=== PATIENT | female | born 1940 ===

== ENCOUNTER 2017-02-04 12:55 | Inpatient (IN) | payer MEDICARE, MEDICAID ==
--- NOTE | 2017-02-04 16:22 | CP.PCM.HP ---
<SriniRico Frankie - Last Filed: 02/04/17 17:20> History of Present Illness - History of Present Illness History of Present Illness: CC: "malfunctioned G tube" Patient is a 75 year old non-verbal female with PMHx of HTN, Parkinson's, Severe dementia, Hypothyroidism, failure to thrive, and DM II who presents to the ED by EMS from [facility] for malfunctioning gastric tube. At baseline, patient is bed-bound, non-verbal. History and HPI collected from chart. Per transfer form, the G Tube was attempted to be replaced by wound surgeon at group home under local anesthesia, after applying gentle constant pressure the tube was unable to be removed. Per old records, her appetite began declining in 06/2015 and she had her initial G Tube insertion placed by Dr. Soriano at that time with subsequent replacements. Patient has contracted upper extremities and with foot drop, unable to advocate for self. Per palliative consult note from 11/2015, patient is DNI only. PMD: Dr Rascon PMHx: HTN, Parkinson's, Severe dementia, Hypothyroidism, failure to thrive, and DM II Surgical Hx: none Allergies: no known drug allergies Fam Hx: non-contributory Social Hx: group home resident for 5 years Present on Admission - Present on Admission Any Indicators Present on Admission: No Review of Systems - Review of Systems Systems not reviewed;Unavailable: Dementia Past Patient History - Past Social History Smoking Status: Never Smoked - CARDIAC Hx Cardiac Disorders: Yes Hx Hypercholesterolemia: Yes Hx Hypertension: Yes - PULMONARY Hx Respiratory Disorders: Yes Hx Pneumonia: Yes - NEUROLOGICAL Hx Neurological Disorder: Yes Hx Dementia: Yes Hx Parkinson's Disease: Yes - HEENT Hx HEENT Problems: Yes Other/Comment: unable to speak - RENAL Hx Chronic Kidney Disease: No - ENDOCRINE/METABOLIC Hx Diabetes Mellitus Type 2: Yes - INTEGUMENTARY Hx Dermatological Problems: Yes Other/Comment: rash to upper back , front neck area with small open sore 1cmx 0.5cm - MUSCULOSKELETAL/RHEUMATOLOGICAL Hx Musculoskeletal Disorders: Yes Hx Falls: Yes - GASTROINTESTINAL Hx Gastrointestinal Disorders: Yes Other/Comment: Pt has PEG with tube feeding - GENITOURINARY/GYNECOLOGICAL Hx Incontinence: Yes Other/Comment: with ulloa cath - PSYCHIATRIC Hx Psychophysiologic Disorder: No Hx Substance Use: No - SURGICAL HISTORY Hx Surgeries: No ( PER [facility] CHART) Hx Section: Yes Other/Comment: Peg tube present - ANESTHESIA Hx Anesthesia: Yes Hx Anesthesia Reactions: No Hx Malignant Hyperthermia: No Meds Allergies/Adverse Reactions: Allergies Allergy/AdvReac Type Severity Reaction Status Date / Time No Known Allergies Allergy Verified 02/04/17 14:12 Physical Exam - Additional Findings Additional findings: - Constitutional Appears: Cachectic, Chronically Ill, Other (contracted) - Head Exam Head Exam: ATRAUMATIC, NORMOCEPHALIC - Eye Exam Eye Exam: No conjuctival injection Additional comments: eyelids contracted, difficult to open - ENT Exam ENT Exam: Mucous Membranes Dry - Neck Exam Neck Exam: Normal Inspection - Respiratory Exam Respiratory Exam: Clear to Ausculation Bilateral, NORMAL BREATHING PATTERN. absent: Rales, Rhonchi, Wheezes, Respiratory Distress - Cardiovascular Exam Cardiovascular Exam: REGULAR RHYTHM, +S1, +S2. absent: Irregular Rhythm - GI/Abdominal Exam GI & Abdominal Exam: Soft, Normal Bowel Sounds. absent: Distended PEG tube inserted in place, dry blood surrounding G tube - Extremities Exam Extremities Exam: absent: Pedal Edema Additional comments: + contractions upper extremities - Neurological Exam Neurological Exam: absent: Alert, Awake - Psychiatric Exam Psychiatric exam: Flat Affect - Skin Skin Exam: Dry, Intact, Normal Color, Warm no ulcers noted Results - Vital Signs Recent Vital Signs: Last Vital Signs Temp 98.7 F 02/04/17 13:29 Pulse 73 02/04/17 16:14 Resp 18 02/04/17 16:14 BP 132/65 02/04/17 16:14 Pulse Ox 96 02/04/17 16:14 - Labs Result Diagrams: 02/04/17 16:30 02/04/17 16:30 Assessment & Plan (1) Malfunction of gastrostomy tube Assessment and Plan: GI consulted, Dr Stephens Given stable vitals, patient's home medications, which are administered via G tube, will be held at this time until G tube is replaced. NS 75 cc/hr Status: Acute (2) Parkinsons Assessment and Plan: Hold until G tube replaced: Carbidopa/Levidopa 25 mg po BID Status: Chronic (3) Dementia Assessment and Plan: Hold until G tube replaced: Aricept 5 mg po daily Status: Chronic (4) Diabetes mellitus Assessment and Plan: Hold until G tube replaced: Metformin 500 mg po daily Hold until G tube replaced: Diabetisource tube feeds @20ml/hr with goal rate of 40ml/hr. Accuchecks ACHS RISS Status: Chronic (5) HTN (hypertension) Assessment and Plan: Stable Hold until G tube replaced: Ramipril 5 mg po daily Hold for SBP <100 and HR <60 Status: Chronic (6) Hypothyroidism Assessment and Plan: Hold until G tube replaced: Synthroid 88 mcg po qam Status: Chronic (7) Prophylactic measure Assessment and Plan: Heparin 5000u SC q8h SCD's Pepcid 20mg IV daily Status: Acute <Mccarthy,Peter H - Last Filed: 02/05/17 07:33> Results - Vital Signs Recent Vital Signs: Last Vital Signs Temp 98.9 F 02/04/17 23:47 Pulse 75 02/04/17 23:47 Resp 20 02/04/17 23:47 BP 135/61 02/04/17 23:47 Pulse Ox 98 02/04/17 23:47 - Labs Result Diagrams: 02/04/17 16:30 02/04/17 16:30 Labs: Laboratory Results - last 24 hr 02/04/17 02/04/17 02/04/17 16:30 16:30 16:30 WBC 8.9 RBC 4.32 Hgb 14.5 Hct 43.5 MCV 100.8 H MCH 33.6 H MCHC 33.4 RDW 13.9 Plt Count 159 MPV 10.7 Neut % (Auto) 65.0 Lymph % (Auto) 26.4 [place] % (Auto) 7.2 Eos % (Auto) 0.8 Baso % (Auto) 0.6 Neut # 5.8 Lymph # 2.4 [place] # 0.6 Eos # 0.1 Baso # 0.1 PT 11.4 INR 1.0 APTT 35 H Sodium 136 Potassium 3.8 Chloride 104 Carbon Dioxide 25 Anion Gap 10 BUN 20 H Creatinine 0.5 L Est GFR ( Amer) > 60 Est GFR (Non-Af Amer) > 60 POC Glucose (mg/dL) Random Glucose 91 Calcium 8.7 Total Bilirubin 0.3 AST 18 ALT 39 Alkaline Phosphatase 75 Troponin I < 0.0120 Total Protein 7.4 Albumin 3.6 Globulin 3.8 Albumin/Globulin Ratio 1.0 02/04/17 02/05/17 02/05/17 16:43 02:26 07:13 WBC RBC Hgb Hct MCV MCH MCHC RDW Plt Count MPV Neut % (Auto) Lymph % (Auto) [place] % (Auto) Eos % (Auto) Baso % (Auto) Neut # Lymph # [place] # Eos # Baso # PT INR APTT Sodium Potassium Chloride Carbon Dioxide Anion Gap BUN Creatinine Est GFR ( Amer) Est GFR (Non-Af Amer) POC Glucose (mg/dL) 101 114 H 109 Random Glucose Calcium Total Bilirubin AST ALT Alkaline Phosphatase Troponin I Total Protein Albumin Globulin Albumin/Globulin Ratio Attending/Attestation - Attestation I have personally seen and examined this patient.: Yes I have fully participated in the care of the patient.: Yes I have reviewed all pertinent clinical information: Yes Notes (Text): 02/05/17 07:32 Medical attending: Patient was seen and examined by me, agrees the above note by medical scientist. We saw the patient in ER bed #2 this is a patient who has a history of very severe Parkinson's disease, dementia, history of diabetes who appear to have had what appears to be a gastrostomy tube placed in 2015. The patient has been at a group home for a rather extended period of time now. From what I understand at the group home they try to change the G-tube however this proved to be unsuccessful and she was brought into the emergency room. In the ER the ER physician also attempted to address the G-tube is well however this again was not successful. When we saw her she didn't have any abnormal vital signs. As documented above in the resident note or not able to get a complete review of systems she is nonverbal and not communicating. She does have IV line for now will give her intravenous fluids until we came to let GI evaluate the patient and see what they could do with the tube Thank you very much, Kaden Mccarthy
[2017-02-04 16:33] LABS: BASO # 0.1 K/uL (0.0-0.2); BASO % 0.6 % (0.0-2.0); EOS # 0.1 K/uL (0.0-0.7); EOS % 0.8 % (0.0-4.0); HEMATOCRIT 43.5 % (34.0-47.0); LYMPH # 2.4 K/uL (1.0-4.3); LYMPH % 26.4 % (20.0-40.0); MEAN CELL VOLUME 100.8 fL (81.0-99.0); MEAN CORPUSCULAR HEMOGLOBIN 33.6 pg (27.0-31.0); MEAN CORPUSCULAR HGB CONC 33.4 g/dL (33.0-37.0); MEAN PLATELET VOLUME 10.7 fL (7.2-11.7); MONO # 0.6 K/uL (0.0-0.8); MONO % 7.2 % (0.0-10.0); RED CELL DISTRIBUTION WIDTH 13.9 % (11.5-14.5); WHITE BLOOD COUNT 8.9 K/uL (4.8-10.8)
--- NOTE | 2017-02-04 16:33 | RAD ---
PROCEDURE: CHEST RADIOGRAPH, 1 VIEW HISTORY: SOB COMPARISON: 12/09/2015 FINDINGS: LUNGS: Clear. PLEURA: No pneumothorax or pleural fluid seen. CARDIOVASCULAR: Normal. OSSEOUS STRUCTURES: No significant abnormalities. VISUALIZED UPPER ABDOMEN: Normal. OTHER FINDINGS: None. IMPRESSION: No active disease.
[2017-02-04 16:45] LABS: ALKALINE PHOSPHATASE 75 U/L (38-126); ALT/SGPT 39 U/L (9-52); BILIRUBIN,TOTAL 0.3 mg/dL (0.2-1.3); BLOOD UREA NITROGEN 20 mg/dL (7-17); CALCIUM 8.7 mg/dl (8.6-10.4); CARBON DIOXIDE 25 mmol/L (22-30); CHLORIDE 104 mmol/L (98-107); GFR AFRICAN-AMERICAN > 60; GLUCOSE,RANDOM 91 mg/dL (65-105); POTASSIUM 3.8 mmol/L (3.6-5.2); SODIUM 136 mmol/L (132-148); TOTAL PROTEIN 7.4 g/dL (6.3-8.3)
[2017-02-04] MEDS: (Novolin R) Insulin Human Regular 100 units/ml vial SC SCH (16:48)
--- NOTE | 2017-02-04 16:50 | C.PDOC ---
History Of Present Illness 76 yr old female with PMHx of advanced dementia, brought in via EMS from a [facility] group home, presents to the ER for malfunctioning G tube. According to group home staff, tube was placed by a unknown GI here at [facility]. [facility] also attempted to swap the tube out with no success. ROS is unable to be obtained due to clinical condition. Time Seen by Provider: 02/04/17 13:57 Chief Complaint (Nursing): GI Problem History Per: EMS History/Exam Limitations: clinical condition Past Medical History Reviewed: Historical Data, Nursing Documentation, Vital Signs Vital Signs: Last Vital Signs Temp 98.3 F 02/05/17 16:56 Pulse 80 02/05/17 16:56 Resp 20 02/05/17 16:56 BP 138/79 02/05/17 16:56 Pulse Ox 95 02/05/17 16:56 - Medical History PMH: Dementia, HTN, Hypercholesterolemia, Parkinson's Disease, Pneumonia - [facility] Procedures INSERTION OF FEEDING DEVICE INTO STOMACH, PERC APPROACH (06/27/15) INSPECTION OF UPPER INTESTINAL TRACT, ENDO (06/27/15) INTRODUCTION OF NUTRITIONAL INTO PERIPH VEIN, PERC APPROACH (06/27/15) INTRODUCTION OF NUTRITIONAL INTO UP GI, VIA OPENING (12/03/15) Family History: States: No Known Family Hx - Social History Hx Alcohol Use: No (non verbal) Hx Substance Use: No - Immunization History Hx Tetanus Toxoid Vaccination: No Hx Influenza Vaccination: No Hx Pneumococcal Vaccination: No Review Of Systems Review Of Systems: ROS cannot be obtained secondary to pt's inabilty to answer questions. Physical Exam - Physical Exam Appears: Non-toxic, No Acute Distress, Other ((+) Advanced dementia. Non responsive.) Skin: Warm, Dry, No Rash Head: Atraumatic, Normacephalic Respiratory: Normal Breath Sounds, No Rales, No Rhonchi, No Stridor, No Wheezing Gastrointestinal/Abdominal: Soft, Other ((+) G tube in left upper abdomen, clogged with material. Dry blood around the G tube area.) Extremity: Other ((+) Contracted upper and lower extremities. ) Neurological/Psych: Other (Unresponsive. Contracted. Consistent with advanced Dementia.) ED Course And Treatment - Laboratory Results Result Diagrams: 02/04/17 16:30 02/04/17 16:30 O2 Sat by Pulse Oximetry: 96 (RA) Pulse Ox Interpretation: Normal - Radiology CXR: Viewed By Me, Read By Radiologist CXR Interpretation: Yes: No Acute Disease Medical Decision Making Medical Decision Making: PLAN: * CXR * EKG * Troponin * CBC * CMP * Urinalysis Disposition Doctor Will See Patient In The: Hospital Counseled Patient/Family Regarding: Studies Performed, Diagnosis - Disposition Disposition: HOSPITALIZED Disposition Time: 18:00 Condition: GOOD - Clinical Impression Clinical Impression: PEG (percutaneous endoscopic gastrostomy) adjustment/replacement/removal - Scribe Statement The provider has reviewed the documentation as recorded by the Jose Saavedra Provider Attestation: All medical record entries made by the Jose were at my direction and personally dictated by me. I have reviewed the chart and agree that the record accurately reflects my personal performance of the history, physical exam, medical decision making, and the department course for this patient. I have also personally directed, reviewed, and agree with the discharge instructions and disposition.
[2017-02-04 17:00] LABS: AST/SGOT 18 U/L (14-36)
[2017-02-04] MEDS ORDERED: Sodium Chloride 0.9% 1,000 ML ONE (17:20)
[2017-02-04] MEDS: Sodium Chloride 0.9% 1,000 ML IV SCH (17:24)
[2017-02-04] MEDS ORDERED: Carbidopa/Levodopa 25/250 GT SCH (18:00)
[2017-02-05] MEDS ORDERED: Levothyroxine 88 MCG TAB PO SCH (06:30)
[2017-02-05] MEDS: Sodium Chloride 0.9% 1,000 ML IV SCH (06:40)
[2017-02-05] MEDS: (Novolin R) Insulin Human Regular 100 units/ml vial SC SCH ×4 (08:15→21:55)
--- NOTE | 2017-02-05 08:47 | CP.PCM.CON ---
<Pratibha Oglesby - Last Filed: 02/05/17 09:32> History of Present Illness - History of Present Illness History of Present Illness: Gastroenterology Fellow/PGY5 Consult Note 76 year old female with history of Hypertension, Hypothyroidism, Diabetes, advanced Parkinson's dementia, and dysphagia s/p PEG placement 06/2015 presenting with malfunctioning gastric tube. Patient is nonverbal. History obtained from chart review of nursing facility notes and hospital staff. Feeding tube unable to be exchanged at nursing facility. Nursing staff noted tube has not been flushing well for administration of feedings and medications. Family- unknown Social- chart review- no tobacco, alcohol, illicit drug use Surgery- PEG placement 06/2015 Review of Systems - Review of Systems Review of Systems: 12-point review of systems unable to be obtained due to advanced dementia Past Patient History - Past Social History Smoking Status: Never Smoked - CARDIAC Hx Cardiac Disorders: Yes Hx Hypercholesterolemia: Yes Hx Hypertension: Yes - PULMONARY Hx Respiratory Disorders: Yes Hx Pneumonia: Yes - NEUROLOGICAL Hx Neurological Disorder: Yes Hx Dementia: Yes Hx Parkinson's Disease: Yes - HEENT Hx HEENT Problems: Yes Other/Comment: unable to speak - RENAL Hx Chronic Kidney Disease: No - ENDOCRINE/METABOLIC Hx Endocrine Disorders: Yes Hx Diabetes Mellitus Type 2: Yes - HEMATOLOGICAL/ONCOLOGICAL Hx Blood Disorders: No - INTEGUMENTARY Hx Dermatological Problems: Yes Other/Comment: rash to upper back , front neck area with small open sore 1cmx 0.5cm - MUSCULOSKELETAL/RHEUMATOLOGICAL Hx Musculoskeletal Disorders: Yes Hx Falls: Yes - GASTROINTESTINAL Hx Gastrointestinal Disorders: Yes Other/Comment: Pt has PEG with tube feeding - GENITOURINARY/GYNECOLOGICAL Hx Genitourinary Disorders: Yes Hx Incontinence: Yes Other/Comment: with ulloa cath - PSYCHIATRIC Hx Psychophysiologic Disorder: No Hx Substance Use: No - SURGICAL HISTORY Hx Surgeries: Yes ( PER [facility] CHART) Hx Section: Yes Other/Comment: Peg tube present - ANESTHESIA Hx Anesthesia: Yes Hx Anesthesia Reactions: No Hx Malignant Hyperthermia: No Meds Allergies/Adverse Reactions: Allergies Allergy/AdvReac Type Severity Reaction Status Date / Time No Known Allergies Allergy Verified 02/04/17 14:12 - Medications Medications: Current Medications Famotidine (Pepcid) 20 mg IVP DAILY [facility] Heparin Sodium (Porcine) (Heparin) 5,000 units SC Q8 [facility] Last Admin: 02/05/17 06:40 Dose: 5,000 units Sodium Chloride (Sodium Chloride 0.9%) 1,000 mls @ 75 mls/hr IV .[id number] DANIS Last Admin: 02/05/17 06:40 Dose: 75 mls/hr Insulin Human Regular (Novolin R) 0 unit SC ACHS DANIS PRN Reason: Protocol Last Admin: 02/05/17 08:15 Dose: Not Given Physical Exam - Constitutional Appears: Non-toxic, No Acute Distress - Head Exam Head Exam: ATRAUMATIC, NORMOCEPHALIC - Eye Exam Eye Exam: PERRL Pupil Exam: PERRL. absent: Miosis, Mydriatic - ENT Exam ENT Exam: Mucous Membranes Moist, Normal Oropharynx - Neck Exam Neck exam: Positive for: Normal Inspection - Respiratory Exam Respiratory Exam: Clear to Auscultation Bilateral. absent: Rales, Rhonchi, Wheezes - Cardiovascular Exam Cardiovascular Exam: RRR, +S1, +S2. absent: Gallop, Rubs - GI/Abdominal Exam GI & Abdominal Exam: Normal Bowel Sounds, Soft. absent: Distended, Firm, Guarding, Organomegaly, Rebound, Rigid, Tenderness Additional comments: LUQ PEG site C/D/I, tubing with old debris on wall - Extremities Exam Extremities exam: Positive for: normal inspection, pedal edema - Neurological Exam Additional comments: nonverbal, eyes remain closed to verbal stimuli - Psychiatric Exam Additional comments: unable to assess in setting of advanced Dementia - Skin Skin Exam: Dry, Intact, Normal Color, Warm Results - Vital Signs Recent Vital Signs: Last Vital Signs Temp 97.6 F 02/05/17 08:40 Pulse 83 02/05/17 08:40 Resp 21 02/05/17 08:40 BP 113/70 02/05/17 08:40 Pulse Ox 98 02/05/17 08:40 - Labs Result Diagrams: 02/04/17 16:30 02/04/17 16:30 Labs: Laboratory Results - last 24 hr 02/04/17 02/04/17 02/04/17 16:30 16:30 16:30 WBC 8.9 RBC 4.32 Hgb 14.5 Hct 43.5 MCV 100.8 H MCH 33.6 H MCHC 33.4 RDW 13.9 Plt Count 159 MPV 10.7 Neut % (Auto) 65.0 Lymph % (Auto) 26.4 [place] % (Auto) 7.2 Eos % (Auto) 0.8 Baso % (Auto) 0.6 Neut # 5.8 Lymph # 2.4 [place] # 0.6 Eos # 0.1 Baso # 0.1 PT 11.4 INR 1.0 APTT 35 H Sodium 136 Potassium 3.8 Chloride 104 Carbon Dioxide 25 Anion Gap 10 BUN 20 H Creatinine 0.5 L Est GFR ( Amer) > 60 Est GFR (Non-Af Amer) > 60 POC Glucose (mg/dL) Random Glucose 91 Calcium 8.7 Total Bilirubin 0.3 AST 18 ALT 39 Alkaline Phosphatase 75 Troponin I < 0.0120 Total Protein 7.4 Albumin 3.6 Globulin 3.8 Albumin/Globulin Ratio 1.0 02/04/17 02/05/17 02/05/17 16:43 02:26 07:13 WBC RBC Hgb Hct MCV MCH MCHC RDW Plt Count MPV Neut % (Auto) Lymph % (Auto) [place] % (Auto) Eos % (Auto) Baso % (Auto) Neut # Lymph # [place] # Eos # Baso # PT INR APTT Sodium Potassium Chloride Carbon Dioxide Anion Gap BUN Creatinine Est GFR ( Amer) Est GFR (Non-Af Amer) POC Glucose (mg/dL) 101 114 H 109 Random Glucose Calcium Total Bilirubin AST ALT Alkaline Phosphatase Troponin I Total Protein Albumin Globulin Albumin/Globulin Ratio Assessment & Plan - Assessment and Plan (Free Text) Assessment: 76 year old female with history of Hypertension, Hypothyroidism, Diabetes, advanced Parkinson's dementia, and dysphagia s/p PEG placement 06/2015 presenting with malfunctioning gastric tube. Active treatment of PEG malfunction to feeds and medication administration. Plan: >POD0 (02/05/17) bedside PEG exchange >okay to use for feeds and medication administration >medicine team managing chronic comorbidities >thank you for opportunity to participate in the care of this patient >please contact with questions or concerns <Prem Baird - Last Filed: 02/05/17 09:55> Meds - Medications Medications: Current Medications Famotidine (Pepcid) 20 mg IVP DAILY [facility] Last Admin: 02/05/17 09:48 Dose: 20 mg Heparin Sodium (Porcine) (Heparin) 5,000 units SC Q8 [facility] Last Admin: 02/05/17 06:40 Dose: 5,000 units Sodium Chloride (Sodium Chloride 0.9%) 1,000 mls @ 75 mls/hr IV .[id number] [facility] Last Admin: 02/05/17 06:40 Dose: 75 mls/hr Insulin Human Regular (Novolin R) 0 unit SC ACHS DANIS PRN Reason: Protocol Last Admin: 02/05/17 08:15 Dose: Not Given Results - Vital Signs Recent Vital Signs: Last Vital Signs Temp 97.6 F 02/05/17 08:40 Pulse 83 02/05/17 08:40 Resp 21 02/05/17 08:40 BP 113/70 02/05/17 08:40 Pulse Ox 98 02/05/17 08:40 - Labs Result Diagrams: 02/04/17 16:30 02/04/17 16:30 Labs: Laboratory Results - last 24 hr 02/04/17 02/04/17 02/04/17 16:30 16:30 16:30 WBC 8.9 RBC 4.32 Hgb 14.5 Hct 43.5 MCV 100.8 H MCH 33.6 H MCHC 33.4 RDW 13.9 Plt Count 159 MPV 10.7 Neut % (Auto) 65.0 Lymph % (Auto) 26.4 [place] % (Auto) 7.2 Eos % (Auto) 0.8 Baso % (Auto) 0.6 Neut # 5.8 Lymph # 2.4 [place] # 0.6 Eos # 0.1 Baso # 0.1 PT 11.4 INR 1.0 APTT 35 H Sodium 136 Potassium 3.8 Chloride 104 Carbon Dioxide 25 Anion Gap 10 BUN 20 H Creatinine 0.5 L Est GFR ( Amer) > 60 Est GFR (Non-Af Amer) > 60 POC Glucose (mg/dL) Random Glucose 91 Calcium 8.7 Total Bilirubin 0.3 AST 18 ALT 39 Alkaline Phosphatase 75 Troponin I < 0.0120 Total Protein 7.4 Albumin 3.6 Globulin 3.8 Albumin/Globulin Ratio 1.0 02/04/17 02/05/17 02/05/17 16:43 02:26 07:13 WBC RBC Hgb Hct MCV MCH MCHC RDW Plt Count MPV Neut % (Auto) Lymph % (Auto) [place] % (Auto) Eos % (Auto) Baso % (Auto) Neut # Lymph # [place] # Eos # Baso # PT INR APTT Sodium Potassium Chloride Carbon Dioxide Anion Gap BUN Creatinine Est GFR ( Amer) Est GFR (Non-Af Amer) POC Glucose (mg/dL) 101 114 H 109 Random Glucose Calcium Total Bilirubin AST ALT Alkaline Phosphatase Troponin I Total Protein Albumin Globulin Albumin/Globulin Ratio Attending/Attestation - Attestation I have personally seen and examined this patient.: Yes I have fully participated in the care of the patient.: Yes I have reviewed all pertinent clinical information: Yes Notes (Text): 02/05/17 09:54 76 year old female with h/o advanced dementia with h/o PEG, we are consulted for PEG malfunction. 1. PEG malfunction Plan: -replace PEG at bedside
[2017-02-05] MEDS ORDERED: Home Med 1 UNIT (Ramipril [Altace] 5 MG) GT SCH (10:00)
--- NOTE | 2017-02-05 10:14 | CARD ---
APPROVED REPORT EKG Measurement Heart [id number] <Conclusion> Normal sinus rhythm Biatrial enlargement Nonspecific ST abnormality Abnormal ECG
--- NOTE | 2017-02-05 10:50 | PCM.SURG1 ---
Surgeon's Initial Post Op Note - Surgeon's Notes Surgeon: Prem Baird Prepress Supervisor: Pratibha Oglesby Type of Anesthesia: None Pre-Operative Diagnosis: PEG Malfunction Operative Findings: PEG malfunction. Bumper peg removed. Replacement 20 Fr tube inserted, 6 cc of saline instilled into balloon, tube flushed and gastric contents returned Post-Operative Diagnosis: PEG malfunction Operation Performed: PEG Change / Bedside Specimen/Specimens Removed: old peg Estimated Blood Loss: EBL {In ML}: 0 Blood Products Given: N/A Post-Op Condition: Good Date of Surgery/Procedure: 02/05/17 Time of Surgery/Procedure: 08:00
--- NOTE | 2017-02-05 15:27 | CP.PCM.DIS ---
<Rico Milligan R - Last Filed: 02/05/17 15:25> Provider - Provider Date of Admission: 02/04/17 16:12 Attending physician: Kaden Mccarthy DO Primary care physician: Dr Rascon Consults: GI: Dr Baird Time Spent in preparation of Discharge (in minutes): 40 Diagnosis - Discharge Diagnosis (1) Malfunction of gastrostomy tube Status: Resolved Priority: Low (2) Parkinsons Status: Chronic Priority: Medium (3) Dementia Status: Chronic Priority: Medium (4) Diabetes mellitus Status: Chronic Priority: Medium (5) HTN (hypertension) Status: Chronic Priority: Medium (6) Hypothyroidism Status: Chronic Priority: Medium (7) Prophylactic measure Status: Resolved Priority: Low Hospital Course - Lab Results Lab Results: Most Recent Lab Values WBC 8.9 K/uL (4.8-10.8) 02/04/17 16:30 RBC 4.32 Mil/uL (3.80-5.20) 02/04/17 16:30 Hgb 14.5 g/dL (11.0-16.0) 02/04/17 16:30 Hct 43.5 % (34.0-47.0) 02/04/17 16:30 MCV 100.8 fL (81.0-99.0) H 02/04/17 16:30 MCH 33.6 pg (27.0-31.0) H 02/04/17 16:30 MCHC 33.4 g/dL (33.0-37.0) 02/04/17 16:30 RDW 13.9 % (11.5-14.5) 02/04/17 16:30 Plt Count 159 K/uL (130-400) 02/04/17 16:30 MPV 10.7 fL (7.2-11.7) 02/04/17 16:30 Neut % (Auto) 65.0 % (50.0-75.0) 02/04/17 16:30 Lymph % (Auto) 26.4 % (20.0-40.0) 02/04/17 16:30 [place] % (Auto) 7.2 % (0.0-10.0) 02/04/17 16:30 Eos % (Auto) 0.8 % (0.0-4.0) 02/04/17 16:30 Baso % (Auto) 0.6 % (0.0-2.0) 02/04/17 16:30 Neut # 5.8 K/uL (1.8-7.0) 02/04/17 16:30 Lymph # 2.4 K/uL (1.0-4.3) 02/04/17 16:30 [place] # 0.6 K/uL (0.0-0.8) 02/04/17 16:30 Eos # 0.1 K/uL (0.0-0.7) 02/04/17 16:30 Baso # 0.1 K/uL (0.0-0.2) 02/04/17 16:30 PT 11.4 SECONDS (9.7-12.2) 02/04/17 16:30 INR 1.0 02/04/17 16:30 APTT 35 SECONDS (21-34) H 02/04/17 16:30 Sodium 136 mmol/L (132-148) 02/04/17 16:30 Potassium 3.8 mmol/L (3.6-5.2) 02/04/17 16:30 Chloride 104 mmol/L (98-107) 02/04/17 16:30 Carbon Dioxide 25 mmol/L (22-30) 02/04/17 16:30 Anion Gap 10 (10-20) 02/04/17 16:30 BUN 20 mg/dL (7-17) H 02/04/17 16:30 Creatinine 0.5 mg/dL (0.7-1.2) L 02/04/17 16:30 Est GFR ( Amer) > 60 02/04/17 16:30 Est GFR (Non-Af Amer) > 60 02/04/17 16:30 POC Glucose (mg/dL) 85 mg/dL (65-110) 02/05/17 11:01 Random Glucose 91 mg/dL (65-105) 02/04/17 16:30 Calcium 8.7 mg/dl (8.6-10.4) 02/04/17 16:30 Total Bilirubin 0.3 mg/dL (0.2-1.3) 02/04/17 16:30 AST 18 U/L (14-36) 02/04/17 16:30 ALT 39 U/L (9-52) 02/04/17 16:30 Alkaline Phosphatase 75 U/L (38-126) 02/04/17 16:30 Troponin I < 0.0120 ng/mL (0.00-0.120) 02/04/17 16:30 Total Protein 7.4 g/dL (6.3-8.3) 02/04/17 16:30 Albumin 3.6 g/dL (3.5-5.0) 02/04/17 16:30 Globulin 3.8 gm/dL (2.2-3.9) 02/04/17 16:30 Albumin/Globulin Ratio 1.0 (1.0-2.1) 02/04/17 16:30 - Hospital Course Hospital Course: History of Present Illness: CC: "malfunctioned G tube" Patient is a 75 year old non-verbal female with PMHx of HTN, Parkinson's, Severe dementia, Hypothyroidism, failure to thrive, and DM II who presents to the ED by EMS from [facility] for malfunctioning gastric tube. At baseline, patient is bed-bound, non-verbal. History and HPI collected from chart. Per transfer form, the G Tube was attempted to be replaced by wound surgeon at [facility] under local anesthesia, after applying gentle constant pressure the tube was unable to be removed. Per old records, her appetite began declining in 06/2015 and she had her initial G Tube insertion placed by Dr. Soriano at that time with subsequent replacements. Patient has contracted upper extremities and with foot drop, unable to advocate for self. Per palliative consult note from 11/2015, patient is DNI only. PMD: Dr Rascon PMHx: HTN, Parkinson's, Severe dementia, Hypothyroidism, failure to thrive, and DM II Surgical Hx: none Allergies: no known drug allergies Fam Hx: non-contributory Social Hx: [facility] for 5 years HOSPITAL COURSE: This patient was brought to the ER because the staff at her [facility] had difficulty replacing the G Tube. The ER physician also had difficulty replacing the G tube. GI, Dr Baird, was consulted to replace the G tube and GI fellow, Dr Oglesby performed the replacement successfully today 02/05 at bedside. The PEG is now okay to use for feeds and medication administration. Her CMP/CBC and her vitals were within normal limits during her brief stay. She was given fluids at 75 cc/hr. Her other home meds were held due to G tube dysfunction, which is now resolved. Operative Findings: PEG malfunction. Bumper peg removed. Replacement 20 Fr tube inserted, 6 cc of saline instilled into balloon, tube flushed and gastric contents returned. Discharge Exam - Head Exam Head Exam: ATRAUMATIC, NORMOCEPHALIC - Additional Findings Additional findings: - Constitutional Appears: Cachectic, Chronically Ill, Other (contracted) - Head Exam Head Exam: ATRAUMATIC, NORMOCEPHALIC - Eye Exam Eye Exam: No conjuctival injection Additional comments: eyelids contracted, difficult to open - ENT Exam ENT Exam: Mucous Membranes Dry - Neck Exam Neck Exam: Normal Inspection - Respiratory Exam Respiratory Exam: Clear to Ausculation Bilateral, NORMAL BREATHING PATTERN. absent: Rales, Rhonchi, Wheezes, Respiratory Distress - Cardiovascular Exam Cardiovascular Exam: REGULAR RHYTHM, +S1, +S2. absent: Irregular Rhythm - GI/Abdominal Exam GI & Abdominal Exam: Soft, Normal Bowel Sounds. absent: Distended PEG tube inserted in place, dry blood surrounding G tube - Extremities Exam Extremities Exam: absent: Pedal Edema Additional comments: + contractions upper extremities - Neurological Exam Neurological Exam: absent: Alert, Awake - Psychiatric Exam Psychiatric exam: Flat Affect - Skin Skin Exam: Dry, Intact, Normal Color, Warm no ulcers noted Discharge Plan - Follow Up Plan Condition: GOOD Disposition: HOME/ ROUTINE Instructions: Percutaneous Endoscopic Gastrostomy Insertion (DC) Additional Instructions: This patient is stable for discharge back to [facility]. The patient's PEG tube was successfully replaced. She may resume all her normal home medications which were being administered at [facility]. No new medications were prescribed on this admission. If symptoms return or worse, please return to ER. <Kaden Mccarthy - Last Filed: 02/05/17 19:26> Provider - Provider Date of Admission: 02/04/17 16:12 Attending physician: Kaden Mccarthy DO Hospital Course - Lab Results Lab Results: Most Recent Lab Values WBC 8.9 K/uL (4.8-10.8) 02/04/17 16:30 RBC 4.32 Mil/uL (3.80-5.20) 02/04/17 16:30 Hgb 14.5 g/dL (11.0-16.0) 02/04/17 16:30 Hct 43.5 % (34.0-47.0) 02/04/17 16:30 MCV 100.8 fL (81.0-99.0) H 02/04/17 16:30 MCH 33.6 pg (27.0-31.0) H 02/04/17 16:30 MCHC 33.4 g/dL (33.0-37.0) 02/04/17 16:30 RDW 13.9 % (11.5-14.5) 02/04/17 16:30 Plt Count 159 K/uL (130-400) 02/04/17 16:30 MPV 10.7 fL (7.2-11.7) 02/04/17 16:30 Neut % (Auto) 65.0 % (50.0-75.0) 02/04/17 16:30 Lymph % (Auto) 26.4 % (20.0-40.0) 02/04/17 16:30 [place] % (Auto) 7.2 % (0.0-10.0) 02/04/17 16:30 Eos % (Auto) 0.8 % (0.0-4.0) 02/04/17 16:30 Baso % (Auto) 0.6 % (0.0-2.0) 02/04/17 16:30 Neut # 5.8 K/uL (1.8-7.0) 02/04/17 16:30 Lymph # 2.4 K/uL (1.0-4.3) 02/04/17 16:30 [place] # 0.6 K/uL (0.0-0.8) 02/04/17 16:30 Eos # 0.1 K/uL (0.0-0.7) 02/04/17 16:30 Baso # 0.1 K/uL (0.0-0.2) 02/04/17 16:30 PT 11.4 SECONDS (9.7-12.2) 02/04/17 16:30 INR 1.0 02/04/17 16:30 APTT 35 SECONDS (21-34) H 02/04/17 16:30 Sodium 136 mmol/L (132-148) 02/04/17 16:30 Potassium 3.8 mmol/L (3.6-5.2) 02/04/17 16:30 Chloride 104 mmol/L (98-107) 02/04/17 16:30 Carbon Dioxide 25 mmol/L (22-30) 02/04/17 16:30 Anion Gap 10 (10-20) 02/04/17 16:30 BUN 20 mg/dL (7-17) H 02/04/17 16:30 Creatinine 0.5 mg/dL (0.7-1.2) L 02/04/17 16:30 Est GFR ( Amer) > 60 02/04/17 16:30 Est GFR (Non-Af Amer) > 60 02/04/17 16:30 POC Glucose (mg/dL) 76 mg/dL (65-110) 02/05/17 16:39 Random Glucose 91 mg/dL (65-105) 02/04/17 16:30 Calcium 8.7 mg/dl (8.6-10.4) 02/04/17 16:30 Total Bilirubin 0.3 mg/dL (0.2-1.3) 02/04/17 16:30 AST 18 U/L (14-36) 02/04/17 16:30 ALT 39 U/L (9-52) 02/04/17 16:30 Alkaline Phosphatase 75 U/L (38-126) 02/04/17 16:30 Troponin I < 0.0120 ng/mL (0.00-0.120) 02/04/17 16:30 Total Protein 7.4 g/dL (6.3-8.3) 02/04/17 16:30 Albumin 3.6 g/dL (3.5-5.0) 02/04/17 16:30 Globulin 3.8 gm/dL (2.2-3.9) 02/04/17 16:30 Albumin/Globulin Ratio 1.0 (1.0-2.1) 02/04/17 16:30 Attending/Attestation - Attestation I have personally seen and examined this patient.: Yes I have fully participated in the care of the patient.: Yes I have reviewed all pertinent clinical information, including history, physical exam and plan: Yes Notes (Text): 02/05/17 19:26 Medical attending: Patient was seen and examined by me, agrees the above note by medical physics professor. The patient will be [facility] to her [facility]. She'll need to resume her previous medication as before. Thank you very much, Kaden Mccarthy
[2017-02-05 16:57] VITALS: BP 138/79; PULSE 80; RESP 20; TEMP 98.3
[2017-02-05] MEDS ORDERED: Dextrose 5%/0.9% NS 1,000 ML IV SCH (17:30)
[2017-02-07 00:23] VITALS: O2SAT 96
== END 2017-02-05 22:39 | DRG 394 ==
LOC: C.ER 12:55 → C.9E 16:12 → C.3T 21:17
PROVIDERS: ADMIT Hospitalist; ATTEND Hospitalist
PROC: 0D20XUZ Change Feeding Device in Upper Intestinal Tract, External Approach (ICD-10-PCS; principal; 2017-02-05)
DX: K94.23 Gastrostomy malfunction (principal); R64 Cachexia; G20 Parkinson's disease; F02.80 Dementia in other diseases classified elsewhere, unspecified severity, without behavioral disturbance, psychotic disturbance, mood disturbance, and anxiety; E11.9 Type 2 diabetes mellitus without complications; R13.10 Dysphagia, unspecified; E03.9 Hypothyroidism, unspecified; E78.00 Pure hypercholesterolemia, unspecified; I10 Essential (primary) hypertension; M21.379 Foot drop, unspecified foot; Z74.01 Bed confinement status; Z87.01 Personal history of pneumonia (recurrent); R62.7 Adult failure to thrive; Z68.24 Body mass index [BMI] 24.0-24.9, adult

== ENCOUNTER 2017-06-17 21:28 | Emergency (ER) | payer MEDICARE, MEDICAID ==
--- NOTE | 2017-06-17 21:37 | C.PDOC ---
History Of Present Illness Patient sent in from half-way for a g tube replacement. Patient is nonverbal and unable to contribute to Hx. Time Seen by Provider: 06/17/17 21:37 History Per: EMS History/Exam Limitations: clinical condition Onset/Duration Of Symptoms: Hrs Current Symptoms Are (Timing): Still Present Severity: None Pain Scale Rating Of: 0 Recent travel outside of the [place]: No Past Medical History Reviewed: Historical Data, Nursing Documentation, Vital Signs Vital Signs: Last Vital Signs Temp 97.5 F L 06/17/17 21:38 Pulse 80 06/17/17 22:52 Resp 18 06/17/17 22:52 BP 126/82 06/17/17 22:52 Pulse Ox 98 06/17/17 22:52 - Medical History PMH: Dementia, HTN, Hypercholesterolemia, Parkinson's Disease, Pneumonia - [facility] Procedures CHANGE FEEDING DEVICE IN UP INTEST TRACT, ELECTRON BEAM WELDER APPROACH (02/04/17) INSERTION OF FEEDING DEVICE INTO STOMACH, PERC APPROACH (06/27/15) INSPECTION OF UPPER INTESTINAL TRACT, ENDO (06/27/15) INTRODUCTION OF NUTRITIONAL INTO PERIPH VEIN, PERC APPROACH (06/27/15) INTRODUCTION OF NUTRITIONAL INTO UP GI, VIA OPENING (12/03/15) Family History: States: No Known Family Hx - Social History Hx Alcohol Use: No (non verbal) Hx Substance Use: No - Immunization History Hx Tetanus Toxoid Vaccination: No Hx Influenza Vaccination: No Hx Pneumococcal Vaccination: No Review Of Systems Review Of Systems: ROS cannot be obtained secondary to pt's inabilty to answer questions. Physical Exam - Physical Exam Appears: Non-toxic, Other (Awake, alert) Skin: Warm, Dry Head: Normacephalic Oral Mucosa: Moist Chest: Symmetrical Cardiovascular: Rhythm Regular Respiratory: No Rales, No Rhonchi, No Wheezing Gastrointestinal/Abdominal: Soft, Other (G tube site intact) Extremity: Other (Upper extremities contracted) Neurological/Psych: Other (Oriented x1) ED Course And Treatment O2 Sat by Pulse Oximetry: 98 Pulse Ox Interpretation: Normal - Other Rad k ab X-Ray: Interpreted by Me, Viewed By Me Interpretation: g tube in place. Progress Note: 20 icelandic g tube inserted without any difficulty. Oral contrast given and kub used to confirm placement. G tube in place Disposition Counseled Patient/Family Regarding: Studies Performed, Diagnosis, Need For Followup - Disposition Referrals: Yoshi Rascon MD [Staff Provider] - Disposition: HOME/ ROUTINE Disposition Time: 21:37 Condition: FAIR Instructions: Gastrostomy, Permanent and Temporary (DC) - Clinical Impression Clinical Impression: Gastrojejunostomy tube dislodgement - Scribe Statement The provider has reviewed the documentation as recorded by the Scribe Juan Limon All medical record entries made by the Scribe were at my direction and personally dictated by me. I have reviewed the chart and agree that the record accurately reflects my personal performance of the history, physical exam, medical decision making, and the department course for this patient. I have also personally directed, reviewed, and agree with the discharge instructions and disposition.
[2017-06-18 00:32] VITALS: BP 128/75; PULSE 84; RESP 20; TEMP 98.5; O2SAT 99
--- NOTE | 2017-06-18 11:12 | RAD ---
HISTORY: reinsertion of gastrostomy tube COMPARISON: 08/10/2015 FINDINGS: BOWEL: Radiopaque water-soluble contrast material was injected through a percutaneous gastrostomy tube and 2 overhead films were obtained. Contrast material is seen within the gastric lumen and also within the jejunum. There is no evidence of extravasation of contrast material into the peritoneal cavity. There is no evidence of bowel obstruction. There is no hepatic or splenic enlargement. There are no masses or abnormal calcifications appreciated. BONES: Normal. OTHER FINDINGS: None. IMPRESSION: Percutaneous gastrostomy tube appears to be appropriately positioned.
== END 2017-06-18 | disposition home or self-care (01) ==
LOC: C.ER 21:28
DX: Z43.1 Encounter for attention to gastrostomy (principal)

== ENCOUNTER 2017-07-02 16:11 | Emergency (ER) | payer MEDICARE, MEDICAID ==
--- NOTE | 2017-07-02 18:09 | C.PDOC ---
History Of Present Illness 76-year-old female, presents to the emergency department from long-term for G -tube placement. Patient is non-verbal, all other Hx limited. Chief Complaint (Nursing): Medical Clearance History/Exam Limitations: clinical condition Past Medical History Reviewed: Historical Data, Nursing Documentation, Vital Signs Vital Signs: Last Vital Signs Temp 97.6 F 07/02/17 22:57 Pulse 60 07/02/17 22:57 Resp 16 07/02/17 22:57 BP 131/62 07/02/17 22:57 Pulse Ox 97 07/02/17 22:57 - Medical History PMH: Dementia, HTN, Hypercholesterolemia, Parkinson's Disease, Pneumonia - [facility] Procedures CHANGE FEEDING DEVICE IN UP INTEST TRACT, SENIOR TECHNICAL RECRUITER APPROACH (02/04/17) INSERTION OF FEEDING DEVICE INTO STOMACH, PERC APPROACH (06/27/15) INSPECTION OF UPPER INTESTINAL TRACT, ENDO (06/27/15) INTRODUCTION OF NUTRITIONAL INTO PERIPH VEIN, PERC APPROACH (06/27/15) INTRODUCTION OF NUTRITIONAL INTO UP GI, VIA OPENING (12/03/15) Family History: States: No Known Family Hx - Social History Hx Alcohol Use: No (non verbal) Hx Substance Use: No - Immunization History Hx Tetanus Toxoid Vaccination: No Hx Influenza Vaccination: No Hx Pneumococcal Vaccination: No Review Of Systems Review Of Systems: ROS cannot be obtained secondary to pt's inabilty to answer questions. Physical Exam - Physical Exam Appears: Non-toxic, No Acute Distress Skin: Normal Color, Warm, Dry, No Rash Head: Normacephalic Eye(s): bilateral: PERRL Nose: Normal Oral Mucosa: Moist Lips: Normal Appearing Neck: Normal ROM Cardiovascular: Rhythm Regular, No Murmur Respiratory: Normal Breath Sounds, No Accessory Muscle Use Gastrointestinal/Abdominal: Other (G-TUBE) Extremity: Normal ROM, No Deformity, No Swelling ED Course And Treatment O2 Sat by Pulse Oximetry: 94 (RA) Pulse Ox Interpretation: Normal Disposition - Disposition Referrals: Yoshi Rascon MD [Staff Provider] - Disposition: TRANSF TO SNF Disposition Time: 20:50 Condition: IMPROVED Additional Instructions: Thank you for letting us take care of you today. The emergency medical care you received today was directed at your acute symptoms. If you were prescribed any medication, please fill it and take as directed. It may take several days for your symptoms to resolve. Return to the Emergency Department if your symptoms worsen, do not improve, or if you have any other problems. Please contact your doctor or call one of the physicians/clinics you have been referred to that are listed on the Patient Visit Information form that is included in your discharge packet. Bring any paperwork you were given at discharge with you along with any medications you are taking to your follow up visit. Our treatment cannot replace ongoing medical care by a primary care provider (PCP) outside of the emergency department. Thank you for allowing the [facility] team to be part of your care today. Follow up with your primary doctor in 2-3 days for re-evaluation. Instructions: How to Care for Your PEG Tube , Percutaneous Endoscopic Gastrostomy Forms: [employer] (Uruguayan) - Clinical Impression Clinical Impression: PEG (percutaneous endoscopic gastrostomy) adjustment/replacement/removal - Scribe Statement The provider has reviewed the documentation as recorded by the Scribe (Jolly Perez) All medical record entries made by the Scribe were at my direction and personally dictated by me. I have reviewed the chart and agree that the record accurately reflects my personal performance of the history, physical exam, medical decision making, and the department course for this patient. I have also personally directed, reviewed, and agree with the discharge instructions and disposition. Gastric Tube - Time Out Time Out: Site verified - Procedure Procedure:: Gastrostomy tube replac. - Performed by Performed by: Attending Physician - Indication(s) Indication(s):: Gastrostomy tub dislodge. - Tube type Tube type:: Gastric feeding tube Tube size Chinese:: 24
[2017-07-02 20:17] VITALS: RESP 16; TEMP 97.6
[2017-07-02 23:00] VITALS: BP 131/62; PULSE 60
[2017-07-03 00:35] VITALS: O2SAT 94
--- NOTE | 2017-07-03 13:42 | RAD ---
HISTORY: confirm G-Tube placement COMPARISON: No prior. FINDINGS: BOWEL: Contrast was injected through the indwelling gastrostomy tube. The contrast is seen in the stomach and in the duodenum. Findings suggestive of appropriate position of the gastrostomy tube. The bowel gas pattern is nonspecific and obstructive. BONES: Normal. OTHER FINDINGS: None. IMPRESSION: Appropriate position of the gastrostomy tube.
--- NOTE | 2017-07-03 13:43 | RAD ---
HISTORY: G-tube placement COMPARISON: Comparison is made to the previous same-day exam FINDINGS: BOWEL: Contrast is seen in the stomach and small bowel loops. Appropriate position of the gastrostomy tube. No evidence of high-grade bowel obstruction BONES: Normal. OTHER FINDINGS: None. IMPRESSION: Appropriate position of the gastrostomy tube.
== END 2017-07-02 23:51 ==
LOC: C.ER 16:11
DX: Z43.1 Encounter for attention to gastrostomy (principal)

== ENCOUNTER 2017-10-24 11:21 | Observation (INO) | payer MEDICARE, MEDICAID ==
[2017-10-24 11:35] VITALS: BMI 24.0
[2017-10-24 11:54] LABS: BASO # 0.1 K/uL (0.0-0.2); BASO % 0.7 % (0.0-2.0); EOS # 0.1 K/uL (0.0-0.7); EOS % 0.5 % (0.0-4.0); HEMOGLOBIN 15.1 g/dL (11.0-16.0); LYMPH # 3.4 K/uL (1.0-4.3); LYMPH % 27.6 % (20.0-40.0); MEAN CORPUSCULAR HEMOGLOBIN 33.1 pg (27.0-31.0); MEAN CORPUSCULAR HGB CONC 33.4 g/dL (33.0-37.0); MEAN PLATELET VOLUME 11.6 fL (7.2-11.7); MONO % 7.8 % (0.0-10.0); NEUT # 7.9 K/uL (1.8-7.0); NEUT % 63.4 % (50.0-75.0); NRBC % 0.1 % (0.0-2.0); RBC 4.56 Mil/uL (3.80-5.20); RED CELL DISTRIBUTION WIDTH 14.1 % (11.5-14.5); WHITE BLOOD COUNT 12.5 K/uL (4.8-10.8)
[2017-10-24 12:08] LABS: INR 1.1; PROTHROMBIN TIME 11.5 SECONDS (9.7-12.2)
--- NOTE | 2017-10-24 12:40 | CT ---
Date of service: 10/24/2017 PROCEDURE: CT HEAD WITHOUT CONTRAST. HISTORY: dizziness COMPARISON: Noncontrast head CT 12/03/2015. TECHNIQUE: Axial computed tomography images were obtained through the head/brain without intravenous contrast. Radiation dose: Total exam DLP = 848.68 mGy-cm. This CT exam was performed using one or more of the following dose reduction techniques: Automated exposure control, adjustment of the mA and/or kV according to patient size, and/or use of iterative reconstruction technique. FINDINGS: HEMORRHAGE: No intracranial hemorrhage appreciated. BRAIN: Good corticomedullary differentiation is seen once again. Proportional though slightly increased, diffuse expansion of the ventriculosulcal and cisternal spaces is appreciated with white matter lucency compatible with diffuse cerebral atrophy and chronic microangiopathy. No suspicious extra-axial fluid collection is identified and the midline brain anatomy appears grossly nonfocal as imaged. There is no mass effect throughout. VENTRICLES: Unremarkable. No hydrocephalus. CALVARIUM: Unremarkable. PARANASAL SINUSES: Multifocal ethmoid sinusitis appreciated bilaterally. MASTOID AIR CELLS: Unremarkable as visualized. No inflammatory changes. OTHER FINDINGS: None. IMPRESSION: Mild increase in age-related neuro degenerative findings, still age-appropriate. No acute intracranial findings. Follow-up CT or MRI are available if clinically warranted.
[2017-10-24 13:01] LABS: SQUAMOUS EPITHIAL < 1 /hpf (0-5); URINE BACTERIA FEW (<OCC); URINE BILIRUBIN NEGATIVE (NEGATIVE); URINE BLOOD NEGATIVE (NEGATIVE); URINE CLARITY Hazy (Clear); URINE COLOR Yellow (YELLOW); URINE GLUCOSE (UA) NORMAL (Normal); URINE LEUKOCYTE ESTERASE TRACE Leu/uL (Negative); URINE PROTEIN NEGATIVE (NEGATIVE); URINE UROBILINOGEN NORMAL mg/dL (0.2-1.0)
[2017-10-24 13:07] LABS: ALB/GLOB RATIO 1.2 (1.0-2.1); ALBUMIN 3.6 g/dL (3.5-5.0); ALT/SGPT 23 U/L (9-52); AST/SGOT 17 U/L (14-36); BLOOD UREA NITROGEN 19 mg/dL (7-17); CALCIUM 9.3 mg/dl (8.6-10.4); GFR AFRICAN-AMERICAN > 60; GFR NON-AFRICAN AMERICAN > 60
--- NOTE | 2017-10-24 14:15 | C.PDOC ---
History Of Present Illness 77 year old female presents to the emergency department after being brought in from her residential with reports of a changed mental status and noted to be clenching her mouth. Patient was seen her by PMD Dr. Rascon, who sent her to the ED for further evaluation. Patient has a history of Parkinson's and dementia and is unable to provide further information. Time Seen by Provider: 10/24/17 11:39 Chief Complaint (Nursing): Shortness Of Breath History Per: Patient, EMS, Other (residential) History/Exam Limitations: clinical condition Onset/Duration Of Symptoms: Hrs Current Symptoms Are (Timing): Still Present Past Medical History Vital Signs: Last Vital Signs Temp 98.5 F 10/24/17 11:35 Pulse 65 10/24/17 14:01 Resp 16 10/24/17 14:01 BP 126/56 L 10/24/17 14:01 Pulse Ox 100 10/24/17 14:15 - Medical History PMH: Dementia, HTN, Hypercholesterolemia, Hypothyroidism, Parkinson's Disease, Pneumonia Denies: Chronic Kidney Disease - [facility] Procedures CHANGE FEEDING DEVICE IN UP INTEST TRACT, TECHNICAL SUPPORT INTERN APPROACH (02/04/17) INSERTION OF FEEDING DEVICE INTO STOMACH, PERC APPROACH (06/27/15) INSPECTION OF UPPER INTESTINAL TRACT, ENDO (06/27/15) INTRODUCTION OF NUTRITIONAL INTO PERIPH VEIN, PERC APPROACH (06/27/15) INTRODUCTION OF NUTRITIONAL INTO UP GI, VIA OPENING (12/03/15) - Social History Hx Alcohol Use: No (non verbal) Hx Substance Use: No - Immunization History Hx Tetanus Toxoid Vaccination: No Hx Influenza Vaccination: No Hx Pneumococcal Vaccination: No ED Course And Treatment - Laboratory Results Result Diagrams: 10/24/17 11:49 10/24/17 12:51 O2 Sat by Pulse Oximetry: 100 Disposition Discussed With : Kaden Mccarthy Doctor Will See Patient In The: Hospital Counseled Patient/Family Regarding: Studies Performed, Diagnosis - Disposition Disposition: HOSPITALIZED Disposition Time: 14:15 Condition: FAIR Forms: [facility] (Slovenian) - Clinical Impression Clinical Impression: Change in mental status
--- NOTE | 2017-10-24 14:30 | RAD ---
Date of service: 10/24/2017 PROCEDURE: CHEST RADIOGRAPH, 1 VIEW HISTORY: SOB COMPARISON: Portable chest 02/04/2017. FINDINGS: LUNGS: No acute pulmonary disease appreciated bilaterally. PLEURA: No pneumothorax or pleural fluid seen. CARDIOVASCULAR: Normal. OSSEOUS STRUCTURES: No significant abnormalities. VISUALIZED UPPER ABDOMEN: Normal. OTHER FINDINGS: None. IMPRESSION: No interval acute cardiopulmonary disease appreciated.
--- NOTE | 2017-10-24 14:31 | CP.PCM.CON ---
History of Present Illness - History of Present Illness History of Present Illness: Neurology Consultation Note: Mrs. Kim is a 77-year-old woman with a past medical history of Advanced Dementia (non-verbal), HTN, Hypercholesterolemia, Hypothyroidism, Parkinson's Disease (bed-bound), Pneumonia, who was noted to have jaw clinching, foaming at the mouth and stiffening of her body this morning. When she was brought to the ED, she was suspected of having seizure activity and was given Ativan. She is now extremely somnolent and does not follow commands or open eyes. CT scan of the head did not show any acute findings. Review of Systems - Review of Systems All systems: reviewed and no additional remarkable complaints except Past Patient History - Past Social History Smoking Status: Never Smoked - CARDIAC Hx Hypercholesterolemia: Yes Hx Hypertension: Yes - PULMONARY Hx Pneumonia: Yes - NEUROLOGICAL Hx Dementia: Yes Hx Parkinson's Disease: Yes - HEENT Hx HEENT Problems: Yes Other/Comment: unable to speak - RENAL Hx Chronic Kidney Disease: No - ENDOCRINE/METABOLIC Hx Hypothyroidism: Yes - HEMATOLOGICAL/ONCOLOGICAL Hx Blood Disorders: No - INTEGUMENTARY Hx Dermatological Problems: Yes Other/Comment: rash upper back - MUSCULOSKELETAL/RHEUMATOLOGICAL Hx Musculoskeletal Disorders: Yes Hx Falls: Yes Other/Comment: R shoulder dislocation HX - GASTROINTESTINAL Hx Gastrointestinal Disorders: Yes Other/Comment: PEG with tube feeding - GENITOURINARY/GYNECOLOGICAL Hx Genitourinary Disorders: Yes Hx Incontinence: Yes - PSYCHIATRIC Hx Substance Use: No - SURGICAL HISTORY Hx Surgeries: Yes ( PER [facility] CHART) Hx Section: Yes Other/Comment: Peg tube present - ANESTHESIA Hx Anesthesia: Yes Hx Anesthesia Reactions: No Hx Malignant Hyperthermia: No Meds Allergies/Adverse Reactions: Allergies Allergy/AdvReac Type Severity Reaction Status Date / Time No Known Allergies Allergy Verified 10/24/17 11:34 Physical Exam - Neurological Exam Additional comments: Somnolent, responds to painful stimulus. Does not open eyes, does not follow commands. Results - Vital Signs Recent Vital Signs: Last Vital Signs Temp 98.5 F 10/24/17 11:35 Pulse 65 10/24/17 14:01 Resp 16 10/24/17 14:01 BP 126/56 L 10/24/17 14:01 Pulse Ox 100 10/24/17 14:15 - Labs Result Diagrams: 10/24/17 11:49 10/24/17 12:51 Labs: Laboratory Results - last 24 hr 10/24/17 10/24/17 10/24/17 11:49 11:49 12:51 WBC 12.5 H RBC 4.56 Hgb 15.1 Hct 45.2 MCV 99.0 MCH 33.1 H MCHC 33.4 RDW 14.1 Plt Count 192 MPV 11.6 Neut % (Auto) 63.4 Lymph % (Auto) 27.6 [place] % (Auto) 7.8 Eos % (Auto) 0.5 Baso % (Auto) 0.7 Neut # (Auto) 7.9 H Lymph # (Auto) 3.4 [place] # (Auto) 1.0 H Eos # (Auto) 0.1 Baso # (Auto) 0.1 PT 11.5 INR 1.1 APTT 35 H Sodium Potassium Chloride Carbon Dioxide Anion Gap BUN Creatinine Est GFR ( Amer) Est GFR (Non-Af Amer) Random Glucose Calcium Total Bilirubin AST ALT Alkaline Phosphatase Troponin I Total Protein Albumin Globulin Albumin/Globulin Ratio TSH 3rd Generation Urine Color Yellow Urine Clarity Hazy Urine pH 6.0 Ur Specific [place] 1.012 Urine Protein Negative Urine Glucose (UA) Normal Urine Ketones Negative Urine Blood Negative Urine Nitrate Negative Urine Bilirubin Negative Urine Urobilinogen Normal Ur Leukocyte Esterase Trace Urine WBC (Auto) 3 Urine RBC (Auto) 2 Ur Squamous Epith Cells < 1 Urine Bacteria Few H Hyaline Casts 3-5 H 10/24/17 12:51 WBC RBC Hgb Hct MCV MCH MCHC RDW Plt Count MPV Neut % (Auto) Lymph % (Auto) [place] % (Auto) Eos % (Auto) Baso % (Auto) Neut # (Auto) Lymph # (Auto) [place] # (Auto) Eos # (Auto) Baso # (Auto) PT INR APTT Sodium 141 Potassium 4.1 Chloride 101 Carbon Dioxide 30 Anion Gap 13 BUN 19 H Creatinine 0.5 L Est GFR ( Amer) > 60 Est GFR (Non-Af Amer) > 60 Random Glucose 117 H Calcium 9.3 Total Bilirubin 0.3 AST 17 ALT 23 Alkaline Phosphatase 97 Troponin I < 0.0120 Total Protein 6.6 Albumin 3.6 Globulin 3.0 Albumin/Globulin Ratio 1.2 TSH 3rd Generation 0.74 Urine Color Urine Clarity Urine pH Ur Specific [place] Urine Protein Urine Glucose (UA) Urine Ketones Urine Blood Urine Nitrate Urine Bilirubin Urine Urobilinogen Ur Leukocyte Esterase Urine WBC (Auto) Urine RBC (Auto) Ur Squamous Epith Cells Urine Bacteria Hyaline Casts Assessment & Plan (1) Seizure Assessment and Plan: I recommend admission to telemetry and obtaining MRI/MRA of the head/neck as well as EEG for 1 hour. Continue current PD medications and start IVF at 100 mL /hr. Neurology will follow. Thank you. Status: Acute Priority: High
--- NOTE | 2017-10-24 14:33 | C.PDOC ---
History Of Present Illness 77 year old female presents to the emergency department after being brought in from her assisted with reports of a changed mental status and noted to be clenching her mouth. Patient was seen her by PMD Dr. Rascon, who sent her to the ED for further evaluation. Patient has a history of Parkinson's and dementia and is unable to provide further information. Time Seen by Provider: 10/24/17 11:39 Chief Complaint (Nursing): Shortness Of Breath History Per: Patient, EMS, Other (assisted) History/Exam Limitations: clinical condition Recent Seizure Activity Began: Unknown Past Medical History Reviewed: Historical Data, Nursing Documentation, Vital Signs Vital Signs: Last Vital Signs Temp 98.4 F 10/24/17 23:15 Pulse 64 10/24/17 23:15 Resp 20 10/24/17 23:15 BP 106/66 10/24/17 23:15 Pulse Ox 100 10/25/17 07:33 - Medical History PMH: Dementia, HTN, Hypercholesterolemia, Hypothyroidism, Parkinson's Disease, Pneumonia Denies: Chronic Kidney Disease Surgical History: No Surg Hx - [facility] Procedures CHANGE FEEDING DEVICE IN UP INTEST TRACT, WINERY WORKER APPROACH (02/04/17) INSERTION OF FEEDING DEVICE INTO STOMACH, PERC APPROACH (06/27/15) INSPECTION OF UPPER INTESTINAL TRACT, ENDO (06/27/15) INTRODUCTION OF NUTRITIONAL INTO PERIPH VEIN, PERC APPROACH (06/27/15) INTRODUCTION OF NUTRITIONAL INTO UP GI, VIA OPENING (12/03/15) Family History: States: No Known Family Hx - Social History Hx Alcohol Use: No (non verbal) Hx Substance Use: No - Immunization History Hx Tetanus Toxoid Vaccination: No Hx Influenza Vaccination: No Hx Pneumococcal Vaccination: No Review Of Systems Review Of Systems: ROS cannot be obtained secondary to pt's inabilty to answer questions. Physical Exam - Physical Exam Appears: Non-toxic, No Acute Distress Skin: Warm, Dry Head: Atraumatic, Normacephalic, Other (clenching mouth) Eye(s): bilateral: Normal Inspection Nose: Normal Neck: Normal, Supple Chest: Symmetrical, No Tenderness Cardiovascular: Rhythm Regular, No Murmur Respiratory: Normal Breath Sounds, No Rales, No Rhonchi, No Wheezing Gastrointestinal/Abdominal: Normal Exam, Soft, No Tenderness, No Guarding, No Rebound, Other (G-tube present) Extremity: Normal ROM Neurological/Psych: No Oriented x3, No Normal Speech, Other (no tonic clonic seizure-like activity noted) ED Course And Treatment - Laboratory Results Result Diagrams: 10/25/17 06:10 10/24/17 12:51 ECG Rhythm: Sinus Rhythm (normal), Nonspecific Changes ECG Interpretation: Normal Interpretation Of ECG: Normal sinus rhythm at 88bpm, normal intervals, normal axes, non-specific ST/T wave changes. Normal ekg. O2 Sat by Pulse Oximetry: 100 - Physician Consult Information Physician Contacted: Uri Lentz Outcome Of Conversation: Case discussed with Dr. Lentz who suggested a CT Head and evaluation for a CVA and seizure. Medical Decision Making Medical Decision Making: Assessment: AMS with possible seizure. Plan: CT Head EKG CMP TSH Troponin I Neurology Consult CBC PTT Prothrombin Time CXR One View Ativan 1mg IVP Blood Culture Urine Culture Disposition - Disposition Disposition: HOSPITALIZED Disposition Time: 14:14 Condition: FAIR - Clinical Impression Clinical Impression: Change in mental status - Scribe Statement The provider has reviewed the documentation as recorded by the Scribe (Balaji Garcia) Provider Attestation: All medical record entries made by the Scribe were at my direction and personally dictated by me. I have reviewed the chart and agree that the record accurately reflects my personal performance of the history, physical exam, medical decision making, and the department course for this patient. I have also personally directed, reviewed, and agree with the discharge instructions and disposition.
--- NOTE | 2017-10-24 16:25 | CP.PCM.HP ---
<Dion Chung - Last Filed: 10/24/17 16:59> History of Present Illness - History of Present Illness History of Present Illness: Resident History & Physical for Dr. Mccarthy Patient is a 77 year old female with past medical history of dementia, Parkinson 's disease, DM, HTN, hypercholesterolemia, hypothyroidism presenting from [facility] with chief complaint of altered mental status. Patient is a poor historian due to being nonverbal at baseline. Per [facility] staff, patient was seen clenching her jaw, with foaming at the mouth and stiffening of her extremities. Patient was then seen by PMD Dr. Rascon, who sent her to the ED for further workup and management. Past medical history: dementia, Parkinson's disease, DM, HTN, hypercholesterolemia, hypothyrodism Past surgical: PEG tube Past social: No smoking history Allergies: NKDA PMD: Dr. Rascon 12 point review of systems was unable to be obtained as patient is nonverbal at baseline. Present on Admission - Present on Admission Any Indicators Present on Admission: No Past Patient History - Past Social History Smoking Status: Never Smoked - CARDIAC Hx Hypercholesterolemia: Yes Hx Hypertension: Yes - PULMONARY Hx Pneumonia: Yes - NEUROLOGICAL Hx Dementia: Yes Hx Parkinson's Disease: Yes - HEENT Hx HEENT Problems: Yes Other/Comment: unable to speak - RENAL Hx Chronic Kidney Disease: No - ENDOCRINE/METABOLIC Hx Hypothyroidism: Yes - HEMATOLOGICAL/ONCOLOGICAL Hx Blood Disorders: No - INTEGUMENTARY Hx Dermatological Problems: Yes Other/Comment: rash upper back - MUSCULOSKELETAL/RHEUMATOLOGICAL Hx Musculoskeletal Disorders: Yes Hx Falls: Yes Other/Comment: R shoulder dislocation HX - GASTROINTESTINAL Hx Gastrointestinal Disorders: Yes Other/Comment: PEG with tube feeding - GENITOURINARY/GYNECOLOGICAL Hx Genitourinary Disorders: Yes Hx Incontinence: Yes - PSYCHIATRIC Hx Substance Use: No - SURGICAL HISTORY Hx Surgeries: Yes ( PER [facility] CHART) Hx Section: Yes Other/Comment: Peg tube present - ANESTHESIA Hx Anesthesia: Yes Hx Anesthesia Reactions: No Hx Malignant Hyperthermia: No Meds Allergies/Adverse Reactions: Allergies Allergy/AdvReac Type Severity Reaction Status Date / Time No Known Allergies Allergy Verified 10/24/17 11:34 Physical Exam - Constitutional Appears: Non-toxic, No Acute Distress Additional comments: Lethargic. - Head Exam Head Exam: ATRAUMATIC, NORMOCEPHALIC - Eye Exam Eye Exam: Normal appearance - ENT Exam ENT Exam: Mucous Membranes Dry, Normal Exam - Neck Exam Neck exam: Positive for: Normal Inspection - Respiratory Exam Respiratory Exam: Clear to Auscultation Bilateral, NORMAL BREATHING PATTERN. absent: Respiratory Distress - Cardiovascular Exam Cardiovascular Exam: REGULAR RHYTHM, +S1, +S2 - GI/Abdominal Exam GI & Abdominal Exam: Normal Bowel Sounds, Soft. absent: Firm, Guarding, Rebound , Rigid Additional comments: with feeding tube in place - Extremities Exam Extremities exam: Positive for: normal capillary refill, normal inspection, pedal pulses present. Negative for: calf tenderness - Back Exam Back exam: NORMAL INSPECTION - Psychiatric Exam Additional comments: Lethargic. Does not follow commands. - Skin Skin Exam: Dry, Intact, Warm Results - Vital Signs Recent Vital Signs: Last Vital Signs Temp 98.5 F 10/24/17 11:35 Pulse 65 10/24/17 14:01 Resp 16 10/24/17 14:01 BP 126/56 L 10/24/17 14:01 Pulse Ox 100 10/24/17 14:42 - Labs Result Diagrams: 10/24/17 11:49 10/24/17 12:51 Labs: Laboratory Results - last 24 hr 10/24/17 10/24/17 10/24/17 11:49 11:49 12:51 WBC 12.5 H RBC 4.56 Hgb 15.1 Hct 45.2 MCV 99.0 MCH 33.1 H MCHC 33.4 RDW 14.1 Plt Count 192 MPV 11.6 Neut % (Auto) 63.4 Lymph % (Auto) 27.6 [place] % (Auto) 7.8 Eos % (Auto) 0.5 Baso % (Auto) 0.7 Neut # (Auto) 7.9 H Lymph # (Auto) 3.4 [place] # (Auto) 1.0 H Eos # (Auto) 0.1 Baso # (Auto) 0.1 PT 11.5 INR 1.1 APTT 35 H Sodium Potassium Chloride Carbon Dioxide Anion Gap BUN Creatinine Est GFR ( Amer) Est GFR (Non-Af Amer) Random Glucose Calcium Total Bilirubin AST ALT Alkaline Phosphatase Troponin I Total Protein Albumin Globulin Albumin/Globulin Ratio TSH 3rd Generation Urine Color Yellow Urine Clarity Hazy Urine pH 6.0 Ur Specific [place] 1.012 Urine Protein Negative Urine Glucose (UA) Normal Urine Ketones Negative Urine Blood Negative Urine Nitrate Negative Urine Bilirubin Negative Urine Urobilinogen Normal Ur Leukocyte Esterase Trace Urine WBC (Auto) 3 Urine RBC (Auto) 2 Ur Squamous Epith Cells < 1 Urine Bacteria Few H Hyaline Casts 3-5 H 10/24/17 12:51 WBC RBC Hgb Hct MCV MCH MCHC RDW Plt Count MPV Neut % (Auto) Lymph % (Auto) [place] % (Auto) Eos % (Auto) Baso % (Auto) Neut # (Auto) Lymph # (Auto) [place] # (Auto) Eos # (Auto) Baso # (Auto) PT INR APTT Sodium 141 Potassium 4.1 Chloride 101 Carbon Dioxide 30 Anion Gap 13 BUN 19 H Creatinine 0.5 L Est GFR ( Amer) > 60 Est GFR (Non-Af Amer) > 60 Random Glucose 117 H Calcium 9.3 Total Bilirubin 0.3 AST 17 ALT 23 Alkaline Phosphatase 97 Troponin I < 0.0120 Total Protein 6.6 Albumin 3.6 Globulin 3.0 Albumin/Globulin Ratio 1.2 TSH 3rd Generation 0.74 Urine Color Urine Clarity Urine pH Ur Specific [place] Urine Protein Urine Glucose (UA) Urine Ketones Urine Blood Urine Nitrate Urine Bilirubin Urine Urobilinogen Ur Leukocyte Esterase Urine WBC (Auto) Urine RBC (Auto) Ur Squamous Epith Cells Urine Bacteria Hyaline Casts Assessment & Plan - Assessment and Plan (Free Text) Assessment: Patient is a 77 year old female with past medical history of dementia, Parkinson 's disease, DM, HTN, hypercholesterolemia, hypothyroidism presenting from [facility] with chief complaint of altered mental status. Plan: Altered mental status- patient is nonverbal at baseline - Possibly due to seizures. 3 mg Ativan given in ED - Head CT shows mild increase in age-related neurodegenerative findings, still age-appropriate. No acute intracranial findings. - CXR shows no interval acute cardiopulmonary disease - UA shows shows few bacteria, 3-5 hyaline casts - Neurology consulted. Appreciate recs - Followup MRI brain, MRA head/neck, EEG - Neurochecks Q4H - Seizure precautions Leukocytosis - Patent afebrile - CXR shows no interval acute cardiopulmonary disease - UA shows few bacteria, 3-5 hyaline casts - Followup blood cultures and urine cultures Hypertension - Start lisinopril 5 mg PO daily - Continue to monitor T2DM - Continue home metformin 500 mg GT BID Advanced dementia - Continue home Aricept 10 mg GT daily Parkinson's disease - Continue home carbidopa/levodopa 1 tab GT TID Hypothyroidism - continue home Levothyroxine 88 mcg GT daily PPX - Lovenox 40 mg SC daily - Turn Q2 to prevent sacral decub ulcers Dion Chung PGY-1 - Date & Time Date: 10/24/17 Time: 16:00 <Kaden Mccarthy H - Last Filed: 10/24/17 18:33> Results - Vital Signs Recent Vital Signs: Last Vital Signs Temp 97.8 F 10/24/17 17:31 Pulse 64 10/24/17 17:31 Resp 18 10/24/17 17:31 BP 133/58 L 10/24/17 17:31 Pulse Ox 100 10/24/17 17:31 - Labs Result Diagrams: 10/24/17 11:49 10/24/17 12:51 Labs: Laboratory Results - last 24 hr 10/24/17 10/24/17 10/24/17 11:49 11:49 12:51 WBC 12.5 H RBC 4.56 Hgb 15.1 Hct 45.2 MCV 99.0 MCH 33.1 H MCHC 33.4 RDW 14.1 Plt Count 192 MPV 11.6 Neut % (Auto) 63.4 Lymph % (Auto) 27.6 [place] % (Auto) 7.8 Eos % (Auto) 0.5 Baso % (Auto) 0.7 Neut # (Auto) 7.9 H Lymph # (Auto) 3.4 [place] # (Auto) 1.0 H Eos # (Auto) 0.1 Baso # (Auto) 0.1 PT 11.5 INR 1.1 APTT 35 H Sodium Potassium Chloride Carbon Dioxide Anion Gap BUN Creatinine Est GFR ( Amer) Est GFR (Non-Af Amer) Random Glucose Calcium Total Bilirubin AST ALT Alkaline Phosphatase Troponin I Total Protein Albumin Globulin Albumin/Globulin Ratio TSH 3rd Generation Urine Color Yellow Urine Clarity Hazy Urine pH 6.0 Ur Specific [place] 1.012 Urine Protein Negative Urine Glucose (UA) Normal Urine Ketones Negative Urine Blood Negative Urine Nitrate Negative Urine Bilirubin Negative Urine Urobilinogen Normal Ur Leukocyte Esterase Trace Urine WBC (Auto) 3 Urine RBC (Auto) 2 Ur Squamous Epith Cells < 1 Urine Bacteria Few H Hyaline Casts 3-5 H 10/24/17 12:51 WBC RBC Hgb Hct MCV MCH MCHC RDW Plt Count MPV Neut % (Auto) Lymph % (Auto) [place] % (Auto) Eos % (Auto) Baso % (Auto) Neut # (Auto) Lymph # (Auto) [place] # (Auto) Eos # (Auto) Baso # (Auto) PT INR APTT Sodium 141 Potassium 4.1 Chloride 101 Carbon Dioxide 30 Anion Gap 13 BUN 19 H Creatinine 0.5 L Est GFR ( Amer) > 60 Est GFR (Non-Af Amer) > 60 Random Glucose 117 H Calcium 9.3 Total Bilirubin 0.3 AST 17 ALT 23 Alkaline Phosphatase 97 Troponin I < 0.0120 Total Protein 6.6 Albumin 3.6 Globulin 3.0 Albumin/Globulin Ratio 1.2 TSH 3rd Generation 0.74 Urine Color Urine Clarity Urine pH Ur Specific [place] Urine Protein Urine Glucose (UA) Urine Ketones Urine Blood Urine Nitrate Urine Bilirubin Urine Urobilinogen Ur Leukocyte Esterase Urine WBC (Auto) Urine RBC (Auto) Ur Squamous Epith Cells Urine Bacteria Hyaline Casts Attending/Attestation - Attestation I have personally seen and examined this patient.: Yes I have fully participated in the care of the patient.: Yes I have reviewed all pertinent clinical information: Yes Notes (Text): 10/24/17 18:31 Medical attending: Patient was seen and examined by me in the ER. She was nonverbal and it appears that this is here baseline. There is a history of severe dementia, parkinson's disease. In the ER she has undergone a CT scan of the head. Also per the ER the patient was brought in due to concerns of what may have been a seizure and was promplty given ativan IV before we came and saw her. We are pending MRI as well as EEG per neurology Kaden Mccarthy
[2017-10-24] MEDS: Enoxaparin 40 mg Syringe SC SCH (17:22)
[2017-10-24] MEDS ORDERED: Enoxaparin 40 mg Syringe ONE (17:22)
[2017-10-24] MEDS: Calcium-Vit D 500 mg-200 Units Tab UD GT SCH ×2 (18:17→19:30)
[2017-10-24] MEDS: Levothyroxine 88 MCG TAB GT SCH (18:21)
[2017-10-24] MEDS: Carboxymethylcellulose 1% Ophth Soln OU SCH ×2 (18:53→22:37)
[2017-10-24] MEDS: Carbidopa/Levodopa 25/250 GT SCH (19:33)
[2017-10-25 06:27] LABS: BASO % 0.4 % (0.0-2.0); EOS % 0.1 % (0.0-4.0); HEMOGLOBIN 13.8 g/dL (11.0-16.0); LYMPH # 1.2 K/uL (1.0-4.3); LYMPH % 13.7 % (20.0-40.0); MEAN CELL VOLUME 98.1 fL (81.0-99.0); MEAN CORPUSCULAR HEMOGLOBIN 33.2 pg (27.0-31.0); MEAN CORPUSCULAR HGB CONC 33.8 g/dL (33.0-37.0); MEAN PLATELET VOLUME 11.5 fL (7.2-11.7); MONO # 0.6 K/uL (0.0-0.8); MONO % 6.9 % (0.0-10.0); NEUT # 6.7 K/uL (1.8-7.0); NEUT % 78.9 % (50.0-75.0); NRBC % 0.1 % (0.0-2.0); RBC 4.16 Mil/uL (3.80-5.20); RED CELL DISTRIBUTION WIDTH 14.3 % (11.5-14.5); WHITE BLOOD COUNT 8.4 K/uL (4.8-10.8)
[2017-10-25] MEDS: Levothyroxine 88 MCG TAB GT SCH (06:50)
--- NOTE | 2017-10-25 07:36 | CP.PCM.PN ---
Subjective - Date & Time of Evaluation Date of Evaluation: 10/25/17 Time of Evaluation: 07:33 - Subjective Subjective: Ms. Kim was seen and examined at the bedside. She is non-verbal, but response to noxious stimuli. Her left upper extremity is contracted with minimal movement, remains with gag reflex. She is tolerating peg feeding. There is no untoward events overnight. Objective - Vital Signs/Intake and Output Vital Signs (last 24 hours): Temp Pulse Resp BP Pulse Ox 98.4 F 64 20 106/66 96 10/24/17 23:15 10/24/17 23:15 10/24/17 23:15 10/24/17 23:15 10/24/17 23:15 Intake and Output: 10/25/17 10/25/17 06:59 18:59 Intake Total 800 Output Total 300 Balance 500 - Medications Medications: Current Medications Artificial Tears (Artificial Tears Refresh Celluvisc) 0 ml OU QID [facility] Last Admin: 10/24/17 22:37 Dose: 2 drop Aspirin (Aspirin Chewable) 81 mg GT DAILY [facility] Last Admin: 10/24/17 19:12 Dose: 81 mg Calcium/Vitamin D (Oyster Shell Calcium/Vitamin D 500 Mg-200 Iu) 1 tab GT BID [facility] Last Admin: 10/24/17 19:30 Dose: Not Given Carbidopa/Levodopa (Sinemet) 1 tab GT TID [facility] Last Admin: 10/24/17 19:33 Dose: Not Given Donepezil HCl (Aricept) 10 mg GT DAILY [facility] Last Admin: 10/24/17 19:13 Dose: 10 mg Enoxaparin Sodium (Lovenox) 40 mg SC DAILY [facility] Last Admin: 10/24/17 17:22 Dose: 40 mg Famotidine (Pepcid) 20 mg GT BID [facility] Last Admin: 10/24/17 19:13 Dose: 20 mg Sodium Chloride (Sodium Chloride 0.9%) 1,000 mls @ 100 mls/hr IV .Q10H [facility] Levothyroxine Sodium (Synthroid) 88 mcg GT DAILY@0630 [facility] Last Admin: 10/25/17 06:50 Dose: 88 mcg Lisinopril (Zestril) 5 mg PO DAILY [facility] Last Admin: 10/24/17 19:13 Dose: 5 mg Metformin HCl (Glucophage) 500 mg GT BIDCC [facility] Last Admin: 10/24/17 19:30 Dose: 500 mg - Labs Labs: 10/25/17 06:10 10/24/17 12:51 PT 11.5 SECONDS (9.7-12.2) 10/24/17 11:49 INR 1.1 10/24/17 11:49 APTT 35 SECONDS (21-34) H 10/24/17 11:49 - Constitutional Appears: No Acute Distress - Head Exam Head Exam: NORMAL INSPECTION - Eye Exam Additional comments: unable to assess, patient fights to close her eyes. Assessment and Plan (1) Seizure Assessment & Plan: Case discussed with Dr. Lentz, continue all current medical regimen including parkinson's therapy. Pending MRI of the brain and EEG. Recommend hydration ( 0.9NS at 100 ml.hr), please hold if patient will have s/s of CHF and if persistent hypertension above 110/110. normothermia. Status: Acute
[2017-10-25 07:39] LABS: ALB/GLOB RATIO 1.2 (1.0-2.1); ALBUMIN 3.5 g/dL (3.5-5.0); ALT/SGPT 22 U/L (9-52); AST/SGOT 20 U/L (14-36); BLOOD UREA NITROGEN 23 mg/dL (7-17); CALCIUM 9.3 mg/dl (8.6-10.4); GFR AFRICAN-AMERICAN > 60; GFR NON-AFRICAN AMERICAN > 60
[2017-10-25] MEDS: Enoxaparin 40 mg Syringe SC SCH (10:07)
[2017-10-25] MEDS: Carboxymethylcellulose 1% Ophth Soln OU SCH ×4 (10:11→22:02)
[2017-10-25] MEDS: Carbidopa/Levodopa 25/250 GT SCH ×3 (10:12→17:29)
[2017-10-25] MEDS: Calcium-Vit D 500 mg-200 Units Tab UD GT SCH ×2 (10:12→17:29)
[2017-10-25 11:56] LABS: ARTERIAL BLOOD GAS HEMOGLOBIN 14.3 g/dL (11.7-17.4); ARTERIAL BLOOD GAS O2 SAT 96.8 % (95-98); ARTERIAL BLOOD GAS PCO2 47 mm/Hg (35-45); ARTERIAL BLOOD GAS PH 7.44 (7.35-7.45); ARTERIAL BLOOD GAS PO2 72 mm/Hg (80-100); ARTERIAL BLOOD GAS TCO2 33.3 mmol/L (22-28)
--- NOTE | 2017-10-25 13:53 | CP.PCM.PN ---
Subjective - Date & Time of Evaluation Date of Evaluation: 10/25/17 Time of Evaluation: 13:49 - Subjective Subjective: PGY-1 Medicine Progress Note Patient seen and examined at bedside. No acute events overnight as per nursing. Patient baseline is nonverbal making ROS unattainable. Patient responds to noxious stimuli. Patient went for MRI but not completed due to patient's contractures. Objective - Vital Signs/Intake and Output Vital Signs (last 24 hours): Temp Pulse Resp BP Pulse Ox 98.0 F 85 18 113/71 100 10/25/17 07:30 10/25/17 07:30 10/25/17 07:30 10/25/17 07:30 10/25/17 07:35 Intake and Output: 10/25/17 10/25/17 06:59 18:59 Intake Total 800 Output Total 300 Balance 500 - Medications Medications: Current Medications Artificial Tears (Artificial Tears Refresh Celluvisc) 0 ml OU QID [facility] Last Admin: 10/25/17 10:11 Dose: 2 drop Aspirin (Aspirin Chewable) 81 mg GT DAILY [facility] Last Admin: 10/25/17 10:07 Dose: 81 mg Calcium/Vitamin D (Oyster Shell Calcium/Vitamin D 500 Mg-200 Iu) 1 tab GT BID [facility] Last Admin: 10/25/17 10:12 Dose: 1 tab Carbidopa/Levodopa (Sinemet) 1 tab GT TID [facility] Last Admin: 10/25/17 10:12 Dose: 1 tab Donepezil HCl (Aricept) 10 mg GT DAILY [facility] Last Admin: 10/25/17 10:07 Dose: 10 mg Enoxaparin Sodium (Lovenox) 40 mg SC DAILY [facility] Last Admin: 10/25/17 10:07 Dose: 40 mg Famotidine (Pepcid) 20 mg GT BID [facility] Last Admin: 10/25/17 10:07 Dose: 20 mg Sodium Chloride (Sodium Chloride 0.9%) 1,000 mls @ 100 mls/hr IV .Q10H [facility] Levothyroxine Sodium (Synthroid) 88 mcg GT DAILY@0630 [facility] Last Admin: 10/25/17 06:50 Dose: 88 mcg Lisinopril (Zestril) 5 mg PO DAILY [facility] Last Admin: 10/25/17 10:07 Dose: 5 mg Metformin HCl (Glucophage) 500 mg GT BIDCC [facility] Last Admin: 10/25/17 08:55 Dose: 500 mg - Labs Labs: 10/25/17 06:10 10/25/17 06:10 PT 11.5 SECONDS (9.7-12.2) 10/24/17 11:49 INR 1.1 10/24/17 11:49 APTT 35 SECONDS (21-34) H 10/24/17 11:49 - Constitutional Appears: Non-toxic, No Acute Distress, Chronically Ill - Head Exam Head Exam: NORMAL INSPECTION, NORMOCEPHALIC - Eye Exam Additional comments: eyes were closed; patient did not respond to verbal stimuli - Respiratory Exam Respiratory Exam: Clear to Ausculation Bilateral, NORMAL BREATHING PATTERN. absent: Wheezes - Cardiovascular Exam Cardiovascular Exam: REGULAR RHYTHM, +S1, +S2. absent: Murmur - GI/Abdominal Exam GI & Abdominal Exam: Soft, Normal Bowel Sounds. absent: Distended, Firm, Tenderness - Extremities Exam Extremities Exam: Normal Inspection. 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 No acute intracranial findings MRI was not completed as patient cannot be supine due to contractures EEG pending; MRA head/neck pending Neurology Consulted: Dr. Lentz- recommendations appreciated Dementia Donepzil 10mg GT daily raudel Parkinson's Disease Carbidopa/Levidopa 1 tab GT TID raudel Hypothyroidism Synthroid 88mcg GT daily DM2 Metformin 500 mg GT BID Hypertension Liniopril 5mg po daily raudel Prophylaxis Lovenox 40 mg SC daily GI prophylaxis: Pepcid 20mg GT BID [facility]
[2017-10-25] MEDS: Sodium Chloride 0.9% 1,000 ML IV SCH (18:37)
[2017-10-25] MEDS ORDERED: Vancomycin 1 gm/NS 200 ml 1 GM/200 ML BAG IVPB ONE ×2 (19:00→20:00)
--- NOTE | 2017-10-26 00:08 | CARD ---
APPROVED REPORT Date of service: 10/24/2017 EKG Measurement Heart [id number] <Conclusion> Normal sinus rhythm with sinus arrhythmia Nonspecific ST abnormality Abnormal ECG
--- NOTE | 2017-10-26 07:39 | CP.PCM.PN ---
Subjective - Date & Time of Evaluation Date of Evaluation: 10/26/17 Time of Evaluation: 07:38 - Subjective Subjective: Ms. Kim was seen and examined at the bedside. She is non-verbal, but response to noxious stimuli. Her left upper extremity is contracted with minimal movement, remains with gag reflex. She is tolerating peg feeding. Both MRI of the brain and EEG was not done yesterday due to patient contracted posture. There is no untoward events overnight. Objective - Vital Signs/Intake and Output Vital Signs (last 24 hours): Temp Pulse Resp BP Pulse Ox 98.4 F 77 20 106/67 100 10/25/17 23:20 10/25/17 23:20 10/25/17 23:20 10/25/17 23:20 10/25/17 23:20 Intake and Output: 10/26/17 10/26/17 06:59 18:59 Output Total 550 Balance -550 - Medications Medications: Current Medications Artificial Tears (Artificial Tears Refresh Celluvisc) 0 ml OU QID [facility] Last Admin: 10/25/17 22:02 Dose: 2 drop Aspirin (Aspirin Chewable) 81 mg GT DAILY [facility] Last Admin: 10/25/17 10:07 Dose: 81 mg Calcium/Vitamin D (Oyster Shell Calcium/Vitamin D 500 Mg-200 Iu) 1 tab GT BID [facility] Last Admin: 10/25/17 17:29 Dose: 1 tab Carbidopa/Levodopa (Sinemet) 1 tab GT TID [facility] Last Admin: 10/25/17 17:29 Dose: 1 tab Donepezil HCl (Aricept) 10 mg GT DAILY [facility] Last Admin: 10/25/17 10:07 Dose: 10 mg Enoxaparin Sodium (Lovenox) 40 mg SC DAILY [facility] Last Admin: 10/25/17 10:07 Dose: 40 mg Famotidine (Pepcid) 20 mg GT BID [facility] Last Admin: 10/25/17 17:29 Dose: 20 mg Sodium Chloride (Sodium Chloride 0.9%) 1,000 mls @ 100 mls/hr IV .Q10H [facility] Last Admin: 10/25/17 18:37 Dose: Not Given Levothyroxine Sodium (Synthroid) 88 mcg GT DAILY@0630 [facility] Last Admin: 10/25/17 06:50 Dose: 88 mcg Lisinopril (Zestril) 5 mg PO DAILY [facility] Last Admin: 10/25/17 10:07 Dose: 5 mg Metformin HCl (Glucophage) 500 mg GT BIDCC [facility] Last Admin: 10/25/17 17:30 Dose: 500 mg - Labs Labs: 10/25/17 06:10 10/25/17 06:10 PT 11.5 SECONDS (9.7-12.2) 10/24/17 11:49 INR 1.1 10/24/17 11:49 APTT 35 SECONDS (21-34) H 10/24/17 11:49 - Constitutional Appears: No Acute Distress - Neurological Exam Neuro motor strength exam: Left Upper Extremity: 0, Right Upper Extremity: 0, Left Lower Extremity: 0, Right Lower Extremity: 0 Additional comments: contracted, unable to participate during assessment. Assessment and Plan (1) Seizure Assessment & Plan: Case discussed with Dr. Lentz, continue all current medical regimen. Recommend hydration, treat any electrolyte abnormalities. Status: Acute
[2017-10-26 08:16] LABS: BASO % 0.3 % (0.0-2.0); EOS # 0.1 K/uL (0.0-0.7); EOS % 0.9 % (0.0-4.0); HEMOGLOBIN 12.6 g/dL (11.0-16.0); LYMPH # 1.4 K/uL (1.0-4.3); LYMPH % 16.3 % (20.0-40.0); MEAN CELL VOLUME 98.3 fL (81.0-99.0); MEAN CORPUSCULAR HEMOGLOBIN 33.1 pg (27.0-31.0); MEAN CORPUSCULAR HGB CONC 33.7 g/dL (33.0-37.0); MEAN PLATELET VOLUME 11.5 fL (7.2-11.7); MONO # 0.6 K/uL (0.0-0.8); MONO % 7.2 % (0.0-10.0); NEUT # 6.4 K/uL (1.8-7.0); NEUT % 75.3 % (50.0-75.0); RBC 3.79 Mil/uL (3.80-5.20); RED CELL DISTRIBUTION WIDTH 14.2 % (11.5-14.5); WHITE BLOOD COUNT 8.5 K/uL (4.8-10.8)
[2017-10-26 08:36] LABS: ALB/GLOB RATIO 1.1 (1.0-2.1); ALT/SGPT 22 U/L (9-52); AST/SGOT 16 U/L (14-36); BLOOD UREA NITROGEN 18 mg/dL (7-17); CALCIUM 8.6 mg/dl (8.6-10.4); GFR AFRICAN-AMERICAN > 60; GFR NON-AFRICAN AMERICAN > 60
--- NOTE | 2017-10-26 10:06 | CT ---
Date of service: 10/26/2017 PROCEDURE: CT HEAD WITHOUT CONTRAST. HISTORY: change of mental status COMPARISON: None available. TECHNIQUE: Axial computed tomography images were obtained through the head/brain without intravenous contrast. Radiation dose: Total exam DLP = 1202 mGy-cm. This CT exam was performed using one or more of the following dose reduction techniques: Automated exposure control, adjustment of the mA and/or kV according to patient size, and/or use of iterative reconstruction technique. FINDINGS: HEMORRHAGE: No intracranial hemorrhage. BRAIN: No mass effect or edema. Scattered focal lucencies in the subcortical and periventricular white matter suggestive for chronic microvascular ischemic change. Punctate hypodensity in the left basal ganglia suggestive for lacunar infarct. VENTRICLES: Diffuse prominence of the ventricles. CALVARIUM: Unremarkable. PARANASAL SINUSES: Mild mucosal thickening of the ethmoid air cells. MASTOID AIR CELLS: Unremarkable as visualized. No inflammatory changes. OTHER FINDINGS: None. IMPRESSION: Chronic microvascular ischemic changes. Atrophy. Diffuse prominence of the ventricles. Mild sinus mucosal disease. If neurologic deficit persists, consider correlation with MRI.
[2017-10-26] MEDS: Carbidopa/Levodopa 25/250 GT SCH ×3 (10:20→17:17)
[2017-10-26] MEDS: Calcium-Vit D 500 mg-200 Units Tab UD GT SCH ×2 (10:20→17:26)
[2017-10-26] MEDS: Carboxymethylcellulose 1% Ophth Soln OU SCH ×4 (10:20→21:36)
[2017-10-26] MEDS: Enoxaparin 40 mg Syringe SC SCH (10:20)
[2017-10-26] MEDS: Sodium Chloride 0.9% 1,000 ML IV SCH (14:46)
--- NOTE | 2017-10-26 17:48 | CP.PCM.PN ---
Subjective - Date & Time of Evaluation Date of Evaluation: 10/26/17 Time of Evaluation: 13:10 - Subjective Subjective: 77 yo female seen and examined at bedside. Pt resting comfortably in no acute distress. Pt is contracted. Further ROS unobtainable as pt in non verbal at baseline. Objective - Vital Signs/Intake and Output Vital Signs (last 24 hours): Temp Pulse Resp BP Pulse Ox 98.9 F 92 H 20 128/73 96 10/26/17 15:32 10/26/17 15:32 10/26/17 15:32 10/26/17 15:32 10/26/17 15:32 Intake and Output: 10/26/17 10/26/17 06:59 18:59 Output Total 550 450 Balance -550 -450 - Medications Medications: Current Medications Artificial Tears (Artificial Tears Refresh Celluvisc) 0 ml OU QID [facility] Last Admin: 10/26/17 17:26 Dose: 1 drop Aspirin (Aspirin Chewable) 81 mg GT DAILY [facility] Last Admin: 10/26/17 10:20 Dose: 81 mg Calcium/Vitamin D (Oyster Shell Calcium/Vitamin D 500 Mg-200 Iu) 1 tab GT BID [facility] Last Admin: 10/26/17 17:26 Dose: 1 tab Carbidopa/Levodopa (Sinemet) 1 tab GT TID [facility] Last Admin: 10/26/17 17:17 Dose: 1 tab Donepezil HCl (Aricept) 10 mg GT DAILY [facility] Last Admin: 10/26/17 10:20 Dose: 10 mg Enoxaparin Sodium (Lovenox) 40 mg SC DAILY [facility] Last Admin: 10/26/17 10:20 Dose: 40 mg Famotidine (Pepcid) 20 mg GT BID [facility] Last Admin: 10/26/17 17:17 Dose: 20 mg Sodium Chloride (Sodium Chloride 0.9%) 1,000 mls @ 100 mls/hr IV .Q10H [facility] Last Admin: 10/26/17 14:46 Dose: Not Given Vancomycin HCl 1 gm/ Sodium (Chloride) 200 mls @ 166.7 mls/hr IVPB Q12 [facility] PRN Reason: Protocol Levothyroxine Sodium (Synthroid) 88 mcg GT DAILY@0630 [facility] Last Admin: 10/25/17 06:50 Dose: 88 mcg Lisinopril (Zestril) 5 mg PO DAILY [facility] Last Admin: 10/26/17 10:20 Dose: 5 mg Metformin HCl (Glucophage) 500 mg GT BIDCC [facility] Last Admin: 10/26/17 17:17 Dose: 500 mg - Labs Labs: 10/26/17 08:08 10/26/17 08:08 PT 11.5 SECONDS (9.7-12.2) 10/24/17 11:49 INR 1.1 10/24/17 11:49 APTT 35 SECONDS (21-34) H 10/24/17 11:49 - Constitutional Appears: Non-toxic - Head Exam Head Exam: ATRAUMATIC, NORMAL INSPECTION, NORMOCEPHALIC - ENT Exam ENT Exam: Normal Exam - Neck Exam Neck Exam: absent: Full ROM (flexion contracture) - Respiratory Exam Respiratory Exam: Clear to Ausculation Bilateral, NORMAL BREATHING PATTERN. absent: Accessory Muscle Use - Cardiovascular Exam Cardiovascular Exam: REGULAR RHYTHM - GI/Abdominal Exam GI & Abdominal Exam: Soft, Normal Bowel Sounds - Extremities Exam Extremities Exam: Normal Capillary Refill. absent: Pedal Edema - Neurological Exam Neurological Exam: Altered. absent: Awake - Skin Skin Exam: Normal Color Assessment and Plan - Assessment and Plan (Free Text) Assessment: 77 yo female w/ PMHx of dementia, Parkinson's, DM2, HTN, HLD, hypothyroidism, admitted from [facility] w/ AMS and r/o siezure 1. r/o seizure -Head CT x2 neg for acute pathology -no evidence of seizure per Dr. Lentz, cleared from neuro -Neuro consult Dr. Lentz 2. AMS most likely 2/2 UTI/Bacteremia -NS @ 100 -CT head negative x2 -MRI not possible due to contracted state -EEG not possible due to contracted state -Urine cx + gram + cocci -Blood cx + for gram + cocci -started on Vanco 1g IV Q12(10/26) -f/u vanco trough -f/u final c+s reports 3. DM2 -accuchecks ACHS -metformin 500mg BID 4. HTN -lisiopril 5mg 5. Hypophosphatemia -PO4 2.2 -f/u labs -15 mmol KPhos repletion as needed 6. Parkinson's -donepezil 10mg -carba/levadopa 1 tab TID 7. Hypothyroidism -levothyroxine 88mcg 8. CAD -ASA 81mg 9. Ppx -Lovenox 40mg sc -pepcid 20mg BID
[2017-10-26] MEDS ORDERED: Potassium Phosphate 15 MMOLE in Sodium Chloride 0.9% 250 ML IVPB ONE (17:57)
[2017-10-26] MEDS: Vancomycin 1 GM in Sodium Chloride 0.9% 200 ML IVPB SCH (21:36)
[2017-10-26] MEDS ORDERED: DiphenhydrAMINE 50 mg/ml Inj IVP STA ×2 (22:10→22:18)
[2017-10-27] MEDS ORDERED: DiphenhydrAMINE 50 mg/ml Inj IVP ONE (02:14)
[2017-10-27] MEDS: Levothyroxine 88 MCG TAB GT SCH (06:30)
--- NOTE | 2017-10-27 07:35 | CP.PCM.PN ---
Subjective - Date & Time of Evaluation Date of Evaluation: 10/27/17 Time of Evaluation: 07:35 - Subjective Subjective: Ms. Kim was seen and examined at the bedside. She is non-verbal, but response to noxious stimuli. Her left upper extremity is contracted with minimal movement, remains with gag reflex. She is tolerating peg feeding. Since MRI and EEG was not possible, repeat CT of the head was done which showed Chronic microvascular ischemic changes.Atrophy.Diffuse prominence of the ventricles.Mild sinus mucosal disease. There was no untoward events overnight. Objective - Vital Signs/Intake and Output Vital Signs (last 24 hours): Temp Pulse Resp BP Pulse Ox 97.5 F L 70 20 107/70 96 10/26/17 23:20 10/26/17 23:20 10/26/17 23:20 10/26/17 23:20 10/26/17 23:20 Intake and Output: 10/27/17 10/27/17 06:59 18:59 Intake Total 1485 Output Total 625 Balance 860 - Medications Medications: Current Medications Artificial Tears (Artificial Tears Refresh Celluvisc) 0 ml OU QID [facility] Last Admin: 10/26/17 21:36 Dose: 1 drop Aspirin (Aspirin Chewable) 81 mg GT DAILY [facility] Last Admin: 10/26/17 10:20 Dose: 81 mg Calcium/Vitamin D (Oyster Shell Calcium/Vitamin D 500 Mg-200 Iu) 1 tab GT BID [facility] Last Admin: 10/26/17 17:26 Dose: 1 tab Carbidopa/Levodopa (Sinemet) 1 tab GT TID [facility] Last Admin: 10/26/17 17:17 Dose: 1 tab Donepezil HCl (Aricept) 10 mg GT DAILY [facility] Last Admin: 10/26/17 10:20 Dose: 10 mg Enoxaparin Sodium (Lovenox) 40 mg SC DAILY [facility] Last Admin: 10/26/17 10:20 Dose: 40 mg Famotidine (Pepcid) 20 mg GT BID [facility] Last Admin: 10/26/17 17:17 Dose: 20 mg Sodium Chloride (Sodium Chloride 0.9%) 1,000 mls @ 100 mls/hr IV .Q10H [facility] Last Admin: 10/27/17 00:00 Dose: Not Given Vancomycin HCl 1 gm/ Sodium (Chloride) 200 mls @ 166.7 mls/hr IVPB Q12 [facility] PRN Reason: Protocol Last Admin: 10/26/17 21:36 Dose: 166.7 mls/hr Levothyroxine Sodium (Synthroid) 88 mcg GT DAILY@0630 [facility] Last Admin: 10/27/17 06:30 Dose: 88 mcg Lisinopril (Zestril) 5 mg PO DAILY [facility] Last Admin: 10/26/17 10:20 Dose: 5 mg Metformin HCl (Glucophage) 500 mg GT BIDCC [facility] Last Admin: 10/26/17 17:17 Dose: 500 mg - Labs Labs: 10/26/17 08:08 10/26/17 08:08 PT 11.5 SECONDS (9.7-12.2) 10/24/17 11:49 INR 1.1 10/24/17 11:49 APTT 35 SECONDS (21-34) H 10/24/17 11:49 - Constitutional Appears: No Acute Distress - Head Exam Head Exam: NORMAL INSPECTION - Eye Exam Additional comments: unable to do, patients fights to close her eyes. - Neurological Exam Neuro motor strength exam: Left Upper Extremity: 0, Right Upper Extremity: 0, Left Lower Extremity: 0, Right Lower Extremity: 0 Additional comments: neurological unchanged from previous examination. Assessment and Plan (1) Seizure Assessment & Plan: Continue all current medical regimen. Recommend to continue hydration, keep head of the bed elevated, treat electrolyte abnormalities. Neurology is signing off since patient's condition remain stable, no seizure activity noted since admission, and due to patient physical condition MRI and EEG was not possible, neurology is sugning off/ Please re-consult if mental condition deteriorates. Status: Acute
--- NOTE | 2017-10-27 07:37 | CP.PCM.PN ---
<Cherie Butcher - Last Filed: 10/28/17 06:04> Subjective - Date & Time of Evaluation Date of Evaluation: 10/27/17 Time of Evaluation: 07:35 - Subjective Subjective: Pt examined at bedside. Pt remains non verbal and contracted. Pt looks well and does not appear to be in any distress. Overnight reports of vanco transfusion reaction reported. Vanco stopped and patient administered benadryl with improvement in redness. Vanco resumed at slower rate with no problems. Objective - Vital Signs/Intake and Output Vital Signs (last 24 hours): Temp Pulse Resp BP Pulse Ox 97.5 F L 70 20 107/70 96 10/26/17 23:20 10/26/17 23:20 10/26/17 23:20 10/26/17 23:20 10/26/17 23:20 Intake and Output: 10/27/17 10/27/17 06:59 18:59 Intake Total 1485 Output Total 625 Balance 860 - Medications Medications: Current Medications Artificial Tears (Artificial Tears Refresh Celluvisc) 0 ml OU QID [facility] Last Admin: 10/26/17 21:36 Dose: 1 drop Aspirin (Aspirin Chewable) 81 mg GT DAILY [facility] Last Admin: 10/26/17 10:20 Dose: 81 mg Calcium/Vitamin D (Oyster Shell Calcium/Vitamin D 500 Mg-200 Iu) 1 tab GT BID [facility] Last Admin: 10/26/17 17:26 Dose: 1 tab Carbidopa/Levodopa (Sinemet) 1 tab GT TID [facility] Last Admin: 10/26/17 17:17 Dose: 1 tab Donepezil HCl (Aricept) 10 mg GT DAILY [facility] Last Admin: 10/26/17 10:20 Dose: 10 mg Enoxaparin Sodium (Lovenox) 40 mg SC DAILY [facility] Last Admin: 10/26/17 10:20 Dose: 40 mg Famotidine (Pepcid) 20 mg GT BID [facility] Last Admin: 10/26/17 17:17 Dose: 20 mg Sodium Chloride (Sodium Chloride 0.9%) 1,000 mls @ 100 mls/hr IV .Q10H [facility] Last Admin: 10/27/17 00:00 Dose: Not Given Vancomycin HCl 1 gm/ Sodium (Chloride) 200 mls @ 166.7 mls/hr IVPB Q12 [facility] PRN Reason: Protocol Last Admin: 10/26/17 21:36 Dose: 166.7 mls/hr Levothyroxine Sodium (Synthroid) 88 mcg GT DAILY@0630 [facility] Last Admin: 10/27/17 06:30 Dose: 88 mcg Lisinopril (Zestril) 5 mg PO DAILY [facility] Last Admin: 10/26/17 10:20 Dose: 5 mg Metformin HCl (Glucophage) 500 mg GT BIDCC [facility] Last Admin: 10/26/17 17:17 Dose: 500 mg - Labs Labs: 10/26/17 08:08 10/26/17 08:08 PT 11.5 SECONDS (9.7-12.2) 10/24/17 11:49 INR 1.1 10/24/17 11:49 APTT 35 SECONDS (21-34) H 10/24/17 11:49 - Constitutional Appears: Well, Non-toxic, No Acute Distress - Head Exam Head Exam: ATRAUMATIC, NORMAL INSPECTION, NORMOCEPHALIC - Eye Exam Eye Exam: Normal appearance - ENT Exam ENT Exam: Mucous Membranes Moist - Neck Exam Neck Exam: absent: Normal Inspection (flexion contraction) - Respiratory Exam Respiratory Exam: Clear to Ausculation Bilateral, NORMAL BREATHING PATTERN. absent: Rhonchi, Wheezes, Respiratory Distress - Cardiovascular Exam Cardiovascular Exam: REGULAR RHYTHM, +S1, +S2. absent: Murmur - GI/Abdominal Exam GI & Abdominal Exam: Soft, Normal Bowel Sounds - Extremities Exam Extremities Exam: Normal Capillary Refill. absent: Normal Inspection ( contracted), Pedal Edema - Neurological Exam Neurological Exam: Altered. absent: Alert, Awake, Oriented x3 - Skin Skin Exam: Intact, Normal Color, Warm Assessment and Plan - Assessment and Plan (Free Text) Assessment: 77 yo female w/ PMHx of dementia, Parkinson's, DM2, HTN, HLD, hypothyroidism, admitted from retirement w/ AMS and r/o siezure 1. r/o seizure -Head CT x2 neg for acute pathology -no evidence of seizure per Dr. Lentz, cleared from neuro -Neuro consult Dr. Lentz 2. AMS most likely 2/2 UTI/Bacteremia -NS @ 100 -CT head negative x2 -MRI not possible due to contracted state -EEG not possible due to contracted state -Urine cx + enterococcus faecalis, susseptible to vanco -Blood cx + for coag neg staph -started on Vanco 1g IV Q12(10/26) -f/u vanco trough 3. DM2 -accuchecks ACHS -metformin 500mg BID 4. HTN -lisiopril 5mg 5. Hypophosphatemia -PO4 3.5, stable -f/u labs -15 mmol KPhos repletion as needed 6. Parkinson's -donepezil 10mg -carba/levadopa 1 tab TID 7. Hypothyroidism -levothyroxine 88mcg 8. CAD -ASA 81mg 9. Ppx -Lovenox 40mg sc -pepcid 20mg BID Dispo: Will speak with patient's son regarding possible d/c to [facility] with rubina <Kaden Mccarthy - Last Filed: 10/28/17 13:57> Objective - Vital Signs/Intake and Output Vital Signs (last 24 hours): Temp Pulse Resp BP Pulse Ox 98.0 F 80 18 136/71 98 10/28/17 07:05 10/28/17 07:05 10/28/17 07:05 10/28/17 07:05 10/28/17 07:05 Intake and Output: 10/28/17 10/28/17 06:59 18:59 Intake Total 1600 Output Total 1275 Balance -1275 1600 - Medications Medications: Current Medications Artificial Tears (Artificial Tears Refresh Celluvisc) 0 ml OU QID [facility] Last Admin: 10/28/17 09:12 Dose: 1 drop Aspirin (Aspirin Chewable) 81 mg GT DAILY [facility] Last Admin: 10/28/17 09:07 Dose: 81 mg Calcium/Vitamin D (Oyster Shell Calcium/Vitamin D 500 Mg-200 Iu) 1 tab GT BID [facility] Last Admin: 10/28/17 09:06 Dose: 1 tab Carbidopa/Levodopa (Sinemet) 1 tab GT TID [facility] Last Admin: 10/28/17 09:06 Dose: 1 tab Donepezil HCl (Aricept) 10 mg GT DAILY [facility] Last Admin: 10/28/17 09:14 Dose: 10 mg Enoxaparin Sodium (Lovenox) 40 mg SC DAILY [facility] Last Admin: 10/28/17 09:07 Dose: 40 mg Famotidine (Pepcid) 20 mg GT BID [facility] Last Admin: 10/28/17 11:00 Dose: 20 mg Sodium Chloride (Sodium Chloride 0.9%) 1,000 mls @ 100 mls/hr IV .Q10H [facility] Last Admin: 10/28/17 06:14 Dose: Not Given Vancomycin/Sodium Chloride (Vancomycin 1 Gm/Ns 200 Ml) 1 gm in 200 mls @ 133.333 mls/hr IVPB Q12 [facility] PRN Reason: Protocol Last Admin: 10/28/17 12:30 Dose: Not Given Levothyroxine Sodium (Synthroid) 88 mcg GT DAILY@0630 [facility] Last Admin: 10/28/17 06:13 Dose: 88 mcg Lisinopril (Zestril) 5 mg PO DAILY [facility] Last Admin: 10/28/17 09:07 Dose: 5 mg Metformin HCl (Glucophage) 500 mg GT BIDCC [facility] Last Admin: 10/28/17 09:07 Dose: 500 mg - Labs Labs: 10/28/17 06:21 10/28/17 06:21 PT 11.5 SECONDS (9.7-12.2) 10/24/17 11:49 INR 1.1 10/24/17 11:49 APTT 35 SECONDS (21-34) H 10/24/17 11:49 Attending/Attestation - Attestation I have personally seen and examined this patient.: Yes I have fully participated in the care of the patient.: Yes I have reviewed all pertinent clinical information, including history, physical exam and plan: Yes Notes (Text): 10/28/17 13:52 Patient was seen and examined by me. Agree with the above note by the resident As mentioned previously we were wating on the cultures and they returned yesterday. She had one + blood culture for staph and the other culture was negative. This maybe possibly be a contaminated culture. The more pressing finding was + Enterococcus found in the urine culture. This is sensitive to Vancomycin and so her abx was changed over to Vancomycin on 10/26. Hopefully patient will be able to return to retirement relatively soon Kaden Mccarthy
[2017-10-27 08:00] LABS: BASO % 0.4 % (0.0-2.0); EOS # 0.1 K/uL (0.0-0.7); EOS % 1.7 % (0.0-4.0); HEMOGLOBIN 12.6 g/dL (11.0-16.0); LYMPH # 1.5 K/uL (1.0-4.3); LYMPH % 21.3 % (20.0-40.0); MEAN CELL VOLUME 99.9 fL (81.0-99.0); MEAN CORPUSCULAR HEMOGLOBIN 33.2 pg (27.0-31.0); MEAN CORPUSCULAR HGB CONC 33.2 g/dL (33.0-37.0); MEAN PLATELET VOLUME 11.7 fL (7.2-11.7); MONO # 0.6 K/uL (0.0-0.8); MONO % 8.4 % (0.0-10.0); NEUT # 4.8 K/uL (1.8-7.0); NEUT % 68.2 % (50.0-75.0); RBC 3.79 Mil/uL (3.80-5.20); RED CELL DISTRIBUTION WIDTH 14.3 % (11.5-14.5)
[2017-10-27 08:24] LABS: ALB/GLOB RATIO 1.2 (1.0-2.1); ALT/SGPT 24 U/L (9-52); AST/SGOT 17 U/L (14-36); BLOOD UREA NITROGEN 17 mg/dL (7-17); CALCIUM 8.6 mg/dl (8.6-10.4); GFR AFRICAN-AMERICAN > 60; GFR NON-AFRICAN AMERICAN > 60
[2017-10-27] MEDS: Enoxaparin 40 mg Syringe SC SCH (09:23)
[2017-10-27] MEDS: Vancomycin 1 GM in Sodium Chloride 0.9% 200 ML IVPB SCH ×2 (09:25→22:12)
[2017-10-27] MEDS: Sodium Chloride 0.9% 1,000 ML IV SCH ×3 (09:39→22:49)
[2017-10-27] MEDS: Carbidopa/Levodopa 25/250 GT SCH ×3 (10:44→18:13)
[2017-10-27] MEDS: Calcium-Vit D 500 mg-200 Units Tab UD GT SCH ×2 (10:44→18:48)
[2017-10-27] MEDS: Carboxymethylcellulose 1% Ophth Soln OU SCH ×4 (10:44→22:12)
[2017-10-28 00:34] VITALS: O2SAT 98
[2017-10-28] MEDS: Levothyroxine 88 MCG TAB GT SCH (06:13)
[2017-10-28] MEDS: Sodium Chloride 0.9% 1,000 ML IV SCH (06:14)
[2017-10-28 06:34] LABS: BASO % 0.3 % (0.0-2.0); EOS # 0.1 K/uL (0.0-0.7); EOS % 1.4 % (0.0-4.0); HEMOGLOBIN 12.4 g/dL (11.0-16.0); LYMPH # 1.4 K/uL (1.0-4.3); LYMPH % 18.1 % (20.0-40.0); MEAN CELL VOLUME 98.2 fL (81.0-99.0); MEAN CORPUSCULAR HEMOGLOBIN 33.3 pg (27.0-31.0); MEAN CORPUSCULAR HGB CONC 33.9 g/dL (33.0-37.0); MEAN PLATELET VOLUME 11.9 fL (7.2-11.7); MONO # 0.6 K/uL (0.0-0.8); MONO % 7.5 % (0.0-10.0); NEUT # 5.6 K/uL (1.8-7.0); NEUT % 72.7 % (50.0-75.0); RBC 3.74 Mil/uL (3.80-5.20); RED CELL DISTRIBUTION WIDTH 13.9 % (11.5-14.5); WHITE BLOOD COUNT 7.7 K/uL (4.8-10.8)
--- NOTE | 2017-10-28 07:17 | CP.PCM.PN ---
Objective - Vital Signs/Intake and Output Vital Signs (last 24 hours): Temp Pulse Resp BP Pulse Ox 98.2 F 78 20 102/59 L 98 10/27/17 23:00 10/27/17 23:00 10/27/17 23:00 10/27/17 23:00 10/28/17 00:00 Intake and Output: 10/28/17 10/28/17 06:59 18:59 Output Total 1275 Balance -1275 - Medications Medications: Current Medications Artificial Tears (Artificial Tears Refresh Celluvisc) 0 ml OU QID [facility] Last Admin: 10/27/17 22:12 Dose: 2 drop Aspirin (Aspirin Chewable) 81 mg GT DAILY [facility] Last Admin: 10/27/17 09:24 Dose: 81 mg Calcium/Vitamin D (Oyster Shell Calcium/Vitamin D 500 Mg-200 Iu) 1 tab GT BID [facility] Last Admin: 10/27/17 18:48 Dose: 1 tab Carbidopa/Levodopa (Sinemet) 1 tab GT TID [facility] Last Admin: 10/27/17 18:13 Dose: 1 tab Donepezil HCl (Aricept) 10 mg GT DAILY [facility] Last Admin: 10/27/17 09:24 Dose: 10 mg Enoxaparin Sodium (Lovenox) 40 mg SC DAILY [facility] Last Admin: 10/27/17 09:23 Dose: 40 mg Famotidine (Pepcid) 20 mg GT BID [facility] Last Admin: 10/27/17 18:13 Dose: 20 mg Sodium Chloride (Sodium Chloride 0.9%) 1,000 mls @ 100 mls/hr IV .Q10H [facility] Last Admin: 10/28/17 06:14 Dose: Not Given Vancomycin HCl 1 gm/ Sodium (Chloride) 200 mls @ 166.7 mls/hr IVPB Q12 [facility] PRN Reason: Protocol Last Admin: 10/27/17 22:12 Dose: 166.7 mls/hr Levothyroxine Sodium (Synthroid) 88 mcg GT DAILY@0630 [facility] Last Admin: 10/28/17 06:13 Dose: 88 mcg Lisinopril (Zestril) 5 mg PO DAILY [facility] Last Admin: 10/27/17 09:24 Dose: 5 mg Metformin HCl (Glucophage) 500 mg GT BIDCC [facility] Last Admin: 10/27/17 18:12 Dose: 500 mg - Labs Labs: 10/28/17 06:21 10/27/17 07:41 PT 11.5 SECONDS (9.7-12.2) 10/24/17 11:49 INR 1.1 10/24/17 11:49 APTT 35 SECONDS (21-34) H 10/24/17 11:49
[2017-10-28 07:38] LABS: ALB/GLOB RATIO 1.3 (1.0-2.1); ALT/SGPT 22 U/L (9-52); AST/SGOT 24 U/L (14-36); BLOOD UREA NITROGEN 16 mg/dL (7-17); CALCIUM 8.7 mg/dl (8.6-10.4); GFR AFRICAN-AMERICAN > 60; GFR NON-AFRICAN AMERICAN > 60
[2017-10-28 08:06] VITALS: BP 136/71; PULSE 80; RESP 18; TEMP 98
[2017-10-28] MEDS: Carbidopa/Levodopa 25/250 GT SCH (09:06)
[2017-10-28] MEDS: Calcium-Vit D 500 mg-200 Units Tab UD GT SCH (09:06)
[2017-10-28] MEDS: Enoxaparin 40 mg Syringe SC SCH (09:07)
[2017-10-28] MEDS: Carboxymethylcellulose 1% Ophth Soln OU SCH (09:12)
[2017-10-28] MEDS: Vancomycin 1 GM in Sodium Chloride 0.9% 200 ML IVPB SCH (09:14)
--- NOTE | 2017-10-28 10:54 | CP.PCM.DIS ---
<Cherie Butcher - Last Filed: 10/28/17 14:12> Provider - Provider Date of Admission: 10/24/17 14:14 Attending physician: Rell Saha MD Consults: Dr. Lentz Time Spent in preparation of Discharge (in minutes): 29 Diagnosis - Discharge Diagnosis (1) Change in mental status Status: Acute Comment: Patient was brought in for an acute change in mental status. In the ED EKG, chest x-ray and head CT were done, all found to be negative for any acute pathology. Repeat head CT confirmed no acute findings. Neurology consult with Dr. Lentz. (2) Urinary tract infection Status: Acute Comment: Patient was found to be septic. UA and urine culture confimed E. Faecalis in the urinary tract as the source of infection. Patient treated with Vanco 1g Q12, to continue vanco outpatient for a total of 7 days. Hospital Course - Lab Results Lab Results: Micro Results 10/25/17 18:40 Blood-Venous Blood Culture - Preliminary NO GROWTH AFTER 48 HOURS 10/25/17 19:30 Blood-Venous Blood Culture - Preliminary NO GROWTH AFTER 48 HOURS 10/24/17 11:30 Blood Blood Culture - Preliminary NO GROWTH AFTER 3 DAYS 10/24/17 11:50 Blood S.aureus & Coag-Neg Staph PNA FISH - Final 10/24/17 11:50 Blood Blood Culture - Final Coagulase Neg Staphylococcus 10/24/17 11:50 Blood Gram Stain - Final 10/24/17 12:51 Urine,Catheterized Urine Culture - Final Enterococcus Faecium Most Recent Lab Values WBC 7.7 K/uL (4.8-10.8) 10/28/17 06:21 RBC 3.74 Mil/uL (3.80-5.20) L 10/28/17 06:21 Hgb 12.4 g/dL (11.0-16.0) 10/28/17 06:21 Hct 36.7 % (34.0-47.0) 10/28/17 06:21 MCV 98.2 fL (81.0-99.0) 10/28/17 06:21 MCH 33.3 pg (27.0-31.0) H 10/28/17 06:21 MCHC 33.9 g/dL (33.0-37.0) 10/28/17 06:21 RDW 13.9 % (11.5-14.5) 10/28/17 06:21 Plt Count 150 K/uL (130-400) 10/28/17 06:21 MPV 11.9 fL (7.2-11.7) H 10/28/17 06:21 Neut % (Auto) 72.7 % (50.0-75.0) 10/28/17 06:21 Lymph % (Auto) 18.1 % (20.0-40.0) L 10/28/17 06:21 Dawes % (Auto) 7.5 % (0.0-10.0) 10/28/17 06:21 Eos % (Auto) 1.4 % (0.0-4.0) 10/28/17 06:21 Baso % (Auto) 0.3 % (0.0-2.0) 10/28/17 06:21 Neut # (Auto) 5.6 K/uL (1.8-7.0) 10/28/17 06:21 Lymph # (Auto) 1.4 K/uL (1.0-4.3) 10/28/17 06:21 Dawes # (Auto) 0.6 K/uL (0.0-0.8) 10/28/17 06:21 Eos # (Auto) 0.1 K/uL (0.0-0.7) 10/28/17 06:21 Baso # (Auto) 0.0 K/uL (0.0-0.2) 10/28/17 06:21 PT 11.5 SECONDS (9.7-12.2) 10/24/17 11:49 INR 1.1 10/24/17 11:49 APTT 35 SECONDS (21-34) H 10/24/17 11:49 Puncture Site Rb 10/25/17 11:52 pCO2 47 mm/Hg (35-45) H 10/25/17 11:52 pO2 72 mm/Hg (80-100) L 10/25/17 11:52 HCO3 30.0 mmol/L (21-28) H 10/25/17 11:52 ABG pH 7.44 (7.35-7.45) 10/25/17 11:52 ABG Total CO2 33.3 mmol/L (22-28) H 10/25/17 11:52 ABG O2 Saturation 96.8 % (95-98) 10/25/17 11:52 ABG Base Excess 6.6 mmol/L (-2.0-3.0) H 10/25/17 11:52 ABG Hemoglobin 14.3 g/dL (11.7-17.4) 10/25/17 11:52 ABG Carboxyhemoglobin 1.8 % (0.5-1.5) H 10/25/17 11:52 POC ABG HHb (Measured) 3.1 % (0.0-5.0) 10/25/17 11:52 ABG Methemoglobin 0.9 % (0.0-3.0) 10/25/17 11:52 Hermes Test Na 10/25/17 11:52 A-a O2 Difference 62.0 mm/Hg 10/25/17 11:52 Respiratory Index 0.9 10/25/17 11:52 Hgb O2 Saturation 94.2 % (95.0-98.0) L 10/25/17 11:52 Liter Flow 2.0 10/25/17 11:52 FiO2 27.0 % 10/25/17 11:52 Sodium 140 mmol/L (132-148) 10/28/17 06:21 Potassium 4.3 mmol/L (3.6-5.2) 10/28/17 06:21 Chloride 103 mmol/L (98-107) 10/28/17 06:21 Carbon Dioxide 28 mmol/L (22-30) 10/28/17 06:21 Anion Gap 13 (10-20) 10/28/17 06:21 BUN 16 mg/dL (7-17) 10/28/17 06:21 Creatinine 0.5 mg/dL (0.7-1.2) L 10/28/17 06:21 Est GFR ( Amer) > 60 10/28/17 06:21 Est GFR (Non-Af Amer) > 60 10/28/17 06:21 POC Glucose (mg/dL) 103 mg/dL (65-110) 10/28/17 06:19 Random Glucose 117 mg/dL (65-105) H 10/28/17 06:21 Calcium 8.7 mg/dl (8.6-10.4) 08/09/18 06:21 Phosphorus 3.0 mg/dL (2.5-4.5) 10/28/17 06:21 Magnesium 2.1 mg/dL (1.6-2.3) 10/28/17 06:21 Total Bilirubin 0.1 mg/dL (0.2-1.3) L 10/28/17 06:21 AST 24 U/L (14-36) 10/28/17 06:21 ALT 22 U/L (9-52) 10/28/17 06:21 Alkaline Phosphatase 91 U/L (38-126) 10/28/17 06:21 Troponin I < 0.0120 ng/mL (0.00-0.120) 10/24/17 12:51 Total Protein 5.5 g/dL (6.3-8.3) L 10/28/17 06:21 Albumin 3.0 g/dL (3.5-5.0) L 10/28/17 06:21 Globulin 2.4 gm/dL (2.2-3.9) 10/28/17 06:21 Albumin/Globulin Ratio 1.3 (1.0-2.1) 10/28/17 06:21 TSH 3rd Generation 0.74 mIU/L (0.46-4.68) 10/24/17 12:51 Urine Color Yellow (YELLOW) 10/24/17 12:51 Urine Clarity Hazy (Clear) 10/24/17 12:51 Urine pH 6.0 (5.0-8.0) 10/24/17 12:51 Ur Specific [place] 1.012 (1.003-1.030) 10/24/17 12:51 Urine Protein Negative mg/dL (NEGATIVE) 10/24/17 12:51 Urine Glucose (UA) Normal mg/dL (Normal) 10/24/17 12:51 Urine Ketones Negative mg/dL (NEGATIVE) 10/24/17 12:51 Urine Blood Negative (NEGATIVE) 10/24/17 12:51 Urine Nitrate Negative (NEGATIVE) 10/24/17 12:51 Urine Bilirubin Negative (NEGATIVE) 10/24/17 12:51 Urine Urobilinogen Normal mg/dL (0.2-1.0) 10/24/17 12:51 Ur Leukocyte Esterase Trace Walter/uL (Negative) 10/24/17 12:51 Urine WBC (Auto) 3 /hpf (0-5) 10/24/17 12:51 Urine RBC (Auto) 2 /hpf (0-3) 10/24/17 12:51 Ur Squamous Epith Cells < 1 /hpf (0-5) 10/24/17 12:51 Urine Bacteria Few (<OCC) H 10/24/17 12:51 Hyaline Casts 3-5 /lpf (0-2) H 10/24/17 12:51 - Hospital Course Hospital Course: 77 year old woman seen and treated at [facility] from 10/24/17-10/28/17. Patient was evaluated for complaints of altered mental status. While in [facility] ED, patient received an EKG which revealed NSR with non-specific ST/T wave changes, normal. Dr. Lentz(Neurology) was consulted and recommended patient receive a head CT which was negative for any acute pathology including suspected seizure. Chest x-ray was normal. Cardiac enzymes, TSH were within normal limits. Patient was admitted with leukocytosis, hypertension, tachycardia and an abnormal UA. Blood cultures and urine cultures were drawn. Urine cultures confirmed Enterococcus Faecalis. Per sensitivity report, patient was started on Vanco 1g Q12 for a duration of 7 days. Patient remained afebrile, other vitals remained stable, leukocytosis normalized and patient was discharged back to [facility] to receive remaining doses of vanco. Patient advised to follow up with PMD within 7 days of discharge. Patient advised to return to ED with worsening of symptoms. HPI at admission "Patient is a 77 year old female with past medical history of dementia, Parkinson's disease, DM, HTN, hypercholesterolemia, hypothyroidism presenting from [facility] with chief complaint of altered mental status. Patient is a poor historian due to being nonverbal at baseline. Per [facility] staff, patient was seen clenching her jaw, with foaming at the mouth and stiffening of her extremities. Patient was then seen by PMD Dr. Rascon, who sent her to the ED for further workup and management." Discharge Exam - Head Exam Head Exam: ATRAUMATIC, NORMAL INSPECTION, NORMOCEPHALIC - Eye Exam Eye Exam: absent: EOMI (unable to assess) - ENT Exam ENT Exam: Mucous Membranes Moist - Respiratory Exam Respiratory Exam: NORMAL BREATHING PATTERN, UNREMARKABLE. absent: Wheezes, Respiratory Distress - Cardiovascular Exam Cardiovascular Exam: REGULAR RHYTHM, +S1, +S2, +S4. absent: Tachycardia, Systolic Murmur - GI/Abdominal Exam GI & Abdominal Exam: Normal Bowel Sounds, Soft. absent: Distended, Unremarkable (peg tube) - Extremities Exam Extremities exam: normal capillary refill, pedal pulses present Additional comments: patient remained contracted - Neurological Exam Neurological exam: Altered, Motor Sensory Deficit - Skin Skin Exam: Intact, Normal Color, Warm Discharge Plan - Follow Up Plan Condition: FAIR Disposition: GROUP HOME FAC W/PLAN READMIS Instructions: Seizures, Adult (DC), Altered Mental Status (DC) Referrals: Yoshi Rascon MD [Staff Provider] - <Kaden Mccarthy Watson - Last Filed: 10/29/17 07:40> Provider - Provider Date of Admission: 10/24/17 14:14 Attending physician: Rell Saha MD Hospital Course - Lab Results Lab Results: Micro Results 10/27/17 19:50 Urine,Cox Urine Culture - Preliminary Gram Negative Ismael 10/25/17 18:40 Blood-Venous Blood Culture - Preliminary NO GROWTH AFTER 3 DAYS 10/25/17 19:30 Blood-Venous Blood Culture - Preliminary NO GROWTH AFTER 3 DAYS 10/24/17 11:30 Blood Blood Culture - Preliminary NO GROWTH AFTER 4 DAYS 10/24/17 11:50 Blood S.aureus & Coag-Neg Staph PNA FISH - Final 10/24/17 11:50 Blood Blood Culture - Final Coagulase Neg Staphylococcus 10/24/17 11:50 Blood Gram Stain - Final 10/24/17 12:51 Urine,Catheterized Urine Culture - Final Enterococcus Faecium Most Recent Lab Values WBC 7.7 K/uL (4.8-10.8) 10/28/17 06:21 RBC 3.74 Mil/uL (3.80-5.20) L 10/28/17 06:21 Hgb 12.4 g/dL (11.0-16.0) 10/28/17 06:21 Hct 36.7 % (34.0-47.0) 10/28/17 06:21 MCV 98.2 fL (81.0-99.0) 10/28/17 06:21 MCH 33.3 pg (27.0-31.0) H 10/28/17 06:21 MCHC 33.9 g/dL (33.0-37.0) 10/28/17 06:21 RDW 13.9 % (11.5-14.5) 10/28/17 06:21 Plt Count 150 K/uL (130-400) 10/28/17 06:21 MPV 11.9 fL (7.2-11.7) H 10/28/17 06:21 Neut % (Auto) 72.7 % (50.0-75.0) 10/28/17 06:21 Lymph % (Auto) 18.1 % (20.0-40.0) L 10/28/17 06:21 Dawes % (Auto) 7.5 % (0.0-10.0) 10/28/17 06:21 Eos % (Auto) 1.4 % (0.0-4.0) 10/28/17 06:21 Baso % (Auto) 0.3 % (0.0-2.0) 10/28/17 06:21 Neut # (Auto) 5.6 K/uL (1.8-7.0) 10/28/17 06:21 Lymph # (Auto) 1.4 K/uL (1.0-4.3) 10/28/17 06:21 Dawes # (Auto) 0.6 K/uL (0.0-0.8) 10/28/17 06:21 Eos # (Auto) 0.1 K/uL (0.0-0.7) 10/28/17 06:21 Baso # (Auto) 0.0 K/uL (0.0-0.2) 10/28/17 06:21 PT 11.5 SECONDS (9.7-12.2) 10/24/17 11:49 INR 1.1 10/24/17 11:49 APTT 35 SECONDS (21-34) H 10/24/17 11:49 Puncture Site Rb 10/25/17 11:52 pCO2 47 mm/Hg (35-45) H 10/25/17 11:52 pO2 72 mm/Hg (80-100) L 10/25/17 11:52 HCO3 30.0 mmol/L (21-28) H 10/25/17 11:52 ABG pH 7.44 (7.35-7.45) 10/25/17 11:52 ABG Total CO2 33.3 mmol/L (22-28) H 10/25/17 11:52 ABG O2 Saturation 96.8 % (95-98) 10/25/17 11:52 ABG Base Excess 6.6 mmol/L (-2.0-3.0) H 10/25/17 11:52 ABG Hemoglobin 14.3 g/dL (11.7-17.4) 10/25/17 11:52 ABG Carboxyhemoglobin 1.8 % (0.5-1.5) H 10/25/17 11:52 POC ABG HHb (Measured) 3.1 % (0.0-5.0) 10/25/17 11:52 ABG Methemoglobin 0.9 % (0.0-3.0) 10/25/17 11:52 Hermes Test Na 10/25/17 11:52 A-a O2 Difference 62.0 mm/Hg 10/25/17 11:52 Respiratory Index 0.9 10/25/17 11:52 Hgb O2 Saturation 94.2 % (95.0-98.0) L 10/25/17 11:52 Liter Flow 2.0 10/25/17 11:52 FiO2 27.0 % 10/25/17 11:52 Sodium 140 mmol/L (132-148) 10/28/17 06:21 Potassium 4.3 mmol/L (3.6-5.2) 10/28/17 06:21 Chloride 103 mmol/L (98-107) 10/28/17 06:21 Carbon Dioxide 28 mmol/L (22-30) 10/28/17 06:21 Anion Gap 13 (10-20) 10/28/17 06:21 BUN 16 mg/dL (7-17) 10/28/17 06:21 Creatinine 0.5 mg/dL (0.7-1.2) L 10/28/17 06:21 Est GFR ( Amer) > 60 10/28/17 06:21 Est GFR (Non-Af Amer) > 60 10/28/17 06:21 POC Glucose (mg/dL) 102 mg/dL (65-110) 10/28/17 11:14 Random Glucose 117 mg/dL (65-105) H 10/28/17 06:21 Calcium 8.7 mg/dl (8.6-10.4) 10/28/17 06:21 Phosphorus 3.0 mg/dL (2.5-4.5) 10/28/17 06:21 Magnesium 2.1 mg/dL (1.6-2.3) 10/28/17 06:21 Total Bilirubin 0.1 mg/dL (0.2-1.3) L 10/28/17 06:21 AST 24 U/L (14-36) 10/28/17 06:21 ALT 22 U/L (9-52) 10/28/17 06:21 Alkaline Phosphatase 91 U/L (38-126) 10/28/17 06:21 Troponin I < 0.0120 ng/mL (0.00-0.120) 10/24/17 12:51 Total Protein 5.5 g/dL (6.3-8.3) L 10/28/17 06:21 Albumin 3.0 g/dL (3.5-5.0) L 10/28/17 06:21 Globulin 2.4 gm/dL (2.2-3.9) 10/28/17 06:21 Albumin/Globulin Ratio 1.3 (1.0-2.1) 10/28/17 06:21 TSH 3rd Generation 0.74 mIU/L (0.46-4.68) 10/24/17 12:51 Urine Color Yellow (YELLOW) 10/24/17 12:51 Urine Clarity Hazy (Clear) 10/24/17 12:51 Urine pH 6.0 (5.0-8.0) 10/24/17 12:51 Ur Specific [place] 1.012 (1.003-1.030) 10/24/17 12:51 Urine Protein Negative mg/dL (NEGATIVE) 10/24/17 12:51 Urine Glucose (UA) Normal mg/dL (Normal) 10/24/17 12:51 Urine Ketones Negative mg/dL (NEGATIVE) 10/24/17 12:51 Urine Blood Negative (NEGATIVE) 10/24/17 12:51 Urine Nitrate Negative (NEGATIVE) 10/24/17 12:51 Urine Bilirubin Negative (NEGATIVE) 10/24/17 12:51 Urine Urobilinogen Normal mg/dL (0.2-1.0) 10/24/17 12:51 Ur Leukocyte Esterase Trace Walter/uL (Negative) 10/24/17 12:51 Urine WBC (Auto) 3 /hpf (0-5) 10/24/17 12:51 Urine RBC (Auto) 2 /hpf (0-3) 10/24/17 12:51 Ur Squamous Epith Cells < 1 /hpf (0-5) 10/24/17 12:51 Urine Bacteria Few (<OCC) H 10/24/17 12:51 Hyaline Casts 3-5 /lpf (0-2) H 10/24/17 12:51 Attending/Attestation - Attestation I have personally seen and examined this patient.: Yes I have fully participated in the care of the patient.: Yes I have reviewed all pertinent clinical information, including history, physical exam and plan: Yes Notes (Text): 10/29/17 07:37 Medical attending: Patient was seen and examined by me. Agree with the above note by the resident The patient is non verbal. The patient will need to continue with the IV abx vancomycin since as reported previously she was found to have positive cultures in the urine for enterococcus faecalis that was sensitive to vancomycin. The patient will need to continue with the IV vancomycin for several more days after she reuturns to [facility] Kaden Mccarthy
[2017-10-28] MEDS ORDERED: Vancomycin 1 gm/NS 200 ml 1 GM/200 ML BAG IVPB SCH (12:00)
== END 2017-10-28 14:32 ==
LOC: C.ER 11:21 → C.9E 14:14 → C.6T 17:15
PROVIDERS: ADMIT Internal Medicine; ATTEND Internal Medicine
DX: N39.0 Urinary tract infection, site not specified (principal); G20 Parkinson's disease; E03.9 Hypothyroidism, unspecified; E11.9 Type 2 diabetes mellitus without complications; E78.00 Pure hypercholesterolemia, unspecified; E78.5 Hyperlipidemia, unspecified; F02.80 Dementia in other diseases classified elsewhere, unspecified severity, without behavioral disturbance, psychotic disturbance, mood disturbance, and anxiety; I10 Essential (primary) hypertension; I25.10 Atherosclerotic heart disease of native coronary artery without angina pectoris; Z79.82 Long term (current) use of aspirin; R56.9 Unspecified convulsions; T80.92XA Unspecified transfusion reaction, initial encounter; Y84.8 Other medical procedures as the cause of abnormal reaction of the patient, or of later complication, without mention of misadventure at the time of the procedure; Z79.84 Long term (current) use of oral hypoglycemic drugs; Z87.01 Personal history of pneumonia (recurrent); B95.2 Enterococcus as the cause of diseases classified elsewhere
CPT/HCPCS: 36415; 70450; 71045; 80053; 81001; 82803; 82948; 83735; 84100; 84443; 84484; 85025; 85610; 85730; 87040; 87086; 87149; 87181; 87205; 93005; 96372; 96374; 99285; G0378; J1200; J1650; J2060; J3370; J7030; J7050

== ENCOUNTER 2018-05-18 05:01 | Emergency (ER) | payer MEDICARE, MEDICAID ==
[2018-05-18 05:01] VITALS: BMI 24.0
--- NOTE | 2018-05-18 05:59 | C.PDOC ---
Time Seen by Provider: 05/18/18 05:39 Chief Complaint (Nursing): Abnormal Skin Integrity History Per: EMS History/Exam Limitations: no limitations Onset/Duration Of Symptoms: Hrs Current Symptoms Are (Timing): Still Present Severity: None Pain Scale Rating Of: 0 Recent travel outside of the [place]: No Additional History Per: [facility] Past Medical History Reviewed: Historical Data, Nursing Documentation, Vital Signs Vital Signs: Last Vital Signs Temp 97.2 F L 05/18/18 05:06 Pulse 72 05/18/18 05:06 Resp 12 05/18/18 05:06 BP 143/69 05/18/18 05:06 Pulse Ox 97 05/18/18 05:06 - Medical History PMH: Dementia, HTN, Hypercholesterolemia, Hypothyroidism, Parkinson's Disease, Pneumonia Denies: Chronic Kidney Disease - [facility] Procedures CHANGE FEEDING DEVICE IN UP INTEST TRACT, USER EXPERIENCE DEVELOPER APPROACH (02/04/17) INSERTION OF FEEDING DEVICE INTO STOMACH, PERC APPROACH (06/27/15) INSPECTION OF UPPER INTESTINAL TRACT, ENDO (06/27/15) INTRODUCTION OF NUTRITIONAL INTO PERIPH VEIN, PERC APPROACH (06/27/15) INTRODUCTION OF NUTRITIONAL INTO UP GI, VIA OPENING (12/03/15) Family History: States: No Known Family Hx - Social History Hx Alcohol Use: No (non verbal) Hx Substance Use: No - Immunization History Hx Tetanus Toxoid Vaccination: No Hx Influenza Vaccination: No Hx Pneumococcal Vaccination: No Physical Exam - Physical Exam Appears: Non-toxic Skin: Warm, Dry Gastrointestinal/Abdominal: Soft, No Tenderness, Other (g tube out, small area of erythema around the opening) Neurological/Psych: No Oriented x3, No Response To Commands ED Course And Treatment O2 Sat by Pulse Oximetry: 97 Pulse Ox Interpretation: Normal Progress Note: replaced the g tube without any difficulty, good return after flush. Disposition Counseled Patient/Family Regarding: Studies Performed, Diagnosis - Disposition Disposition: HOME/ ROUTINE Disposition Time: 05:57 Condition: FAIR Instructions: How to Give a Tube Feeding Forms: [employer] (Czech) - Clinical Impression Clinical Impression: G tube feedings, Gastrostomy tube dysfunction
[2018-05-18 06:34] VITALS: RESP 18; TEMP 97.9
[2018-05-18 10:23] VITALS: BP 131/64; PULSE 74; O2SAT 95
== END 2018-05-18 10:59 | disposition home or self-care (01) ==
LOC: C.ER 05:01
DX: K94.23 Gastrostomy malfunction (principal); Y84.8 Other medical procedures as the cause of abnormal reaction of the patient, or of later complication, without mention of misadventure at the time of the procedure; Y92.89 Other specified places as the place of occurrence of the external cause

== ENCOUNTER 2018-06-13 09:04 | Emergency (ER) | payer MEDICARE, MEDICAID ==
[2018-06-13 09:07] VITALS: BMI 24.0
[2018-06-13 09:17] VITALS: TEMP 98.5; O2SAT 95
[2018-06-13] MEDS ORDERED: Iohexol 240 (50 ml) PO STA ×2 (10:14→10:19)
[2018-06-13] MEDS ORDERED: Iohexol 240 (50 ml) ONE (10:47)
--- NOTE | 2018-06-13 11:40 | C.PDOC ---
History Of Present Illness 77 y/o female with a PMHx of HTN, dementia, Parkinsons disease, and hypothyroidism, sent to the ED from residential for evaluation s/p PEG tube displacement. Per residential records, the PEG tube fell out and needs to be replaced. Patient is nonverbal and receives all medications and alimentation via the PEG. History obtained entirely from EMS and residential records. Time Seen by Provider: 06/13/18 09:09 Chief Complaint (Nursing): Medical Clearance History Per: Patient History/Exam Limitations: clinical condition (dementia, nonverbal) Onset/Duration Of Symptoms: Hrs Current Symptoms Are (Timing): Still Present Past Medical History Reviewed: Historical Data, Nursing Documentation, Vital Signs Vital Signs: Last Vital Signs Temp 98.5 F 06/13/18 09:09 Pulse 74 06/13/18 09:09 Resp 15 06/13/18 09:09 BP 142/65 06/13/18 09:09 Pulse Ox 95 06/13/18 09:09 - Medical History PMH: Dementia, HTN, Hypercholesterolemia, Hypothyroidism, Parkinson's Disease, Pneumonia Denies: Chronic Kidney Disease Surgical History: Other Surgeries: Gastrostomy - [facility] Procedures CHANGE FEEDING DEVICE IN UP INTEST TRACT, COMPOSITE ENGINEER APPROACH (02/04/17) INSERTION OF FEEDING DEVICE INTO STOMACH, PERC APPROACH (06/27/15) INSPECTION OF UPPER INTESTINAL TRACT, ENDO (06/27/15) INTRODUCTION OF NUTRITIONAL INTO PERIPH VEIN, PERC APPROACH (06/27/15) INTRODUCTION OF NUTRITIONAL INTO UP GI, VIA OPENING (12/03/15) Family History: States: No Known Family Hx - Social History Hx Alcohol Use: No (non verbal) Hx Substance Use: No - Immunization History Hx Tetanus Toxoid Vaccination: (UNKNOWN) Hx Influenza Vaccination: (UNKNOWN) Hx Pneumococcal Vaccination: (UNKNOWN) Review Of Systems Review Of Systems: ROS cannot be obtained secondary to pt's inabilty to answer questions. Physical Exam - Physical Exam Appears: Non-toxic, No Acute Distress Skin: Normal Color, Warm, Dry Head: Atraumatic, Normacephalic Eye(s): bilateral: Normal Inspection, PERRL, EOMI Oral Mucosa: Moist Neck: Supple Chest: Symmetrical Cardiovascular: Rhythm Regular, No Murmur Respiratory: No Rales, No Rhonchi, No Wheezing, Other (Lungs CTA bilaterally) Gastrointestinal/Abdominal: Soft, No Tenderness, Other (stoma noted with mild surrounding erythema and dark brown discharge, PEG tube out) Extremity: Bilateral: Atraumatic, Normal Color And Temperature Neurological/Psych: Other (Awake, Non-verbal) ED Course And Treatment O2 Sat by Pulse Oximetry: 95 (RA) Pulse Ox Interpretation: Normal Progress Note: 20Fr PEG tube placed by me, tolerated well by patient. Gastrograph and x-ray obtained, placement confirmed. Patient is stable for discharge to residential. Disposition Counseled Patient/Family Regarding: Diagnosis, Need For Followup - Disposition Referrals: Yoshi Rascon MD [Staff Provider] - Disposition: HOME/ ROUTINE Disposition Time: 11:30 Condition: STABLE Instructions: Gastrostomy, Permanent and Temporary (DC) Forms: [employer] (Romansh) Print Language: TURKMEN - Clinical Impression Clinical Impression: PEG tube malfunction - Scribe Statement The provider has reviewed the documentation as recorded by the Scribe Enedina Nguyen Provider Attestation: All medical record entries made by the Scribe were at my direction and personally dictated by me. I have reviewed the chart and agree that the record accurately reflects my personal performance of the history, physical exam, medical decision making, and the department course for this patient. I have also personally directed, reviewed, and agree with the discharge instructions and disposition.
[2018-06-13 12:55] VITALS: BP 138/94; PULSE 97; RESP 24
--- NOTE | 2018-06-13 14:10 | RAD ---
Date of service: 06/13/2018 HISTORY: confirm PEG tube placement COMPARISON: 07/02/2017 TECHNIQUE: 1 view obtained. FINDINGS: BOWEL: Stable and satisfactory position of gastrostomy tube. Contrast identified in small bowel. No evidence of contrast leak. BONES: Normal. OTHER FINDINGS: None. IMPRESSION: Satisfactory position and function of indwelling gastrostomy tube.
== END 2018-06-13 13:16 | disposition home or self-care (01) ==
LOC: C.ER 09:04
DX: K94.23 Gastrostomy malfunction (principal)
CPT/HCPCS: 43762; 74018; 99282; Q9966

== ENCOUNTER 2018-06-24 06:32 | Emergency (ER) | payer MEDICARE, MEDICAID ==
[2018-06-24 06:33] VITALS: BMI 24.0
[2018-06-24] MEDS ORDERED: Iohexol 240 (50 ml) PO STA (08:18)
[2018-06-24] MEDS ORDERED: Iohexol 240 (50 ml) ONE (08:55)
[2018-06-24 09:32] VITALS: BP 129/83; O2SAT 97
--- NOTE | 2018-06-24 09:48 | C.PDOC ---
History Of Present Illness 77 year old female sent from custodial for placement of PEG tube. It is unclear when the PEG tube fell out. [facility] inserted a Cox catheter in place. Time Seen by Provider: 06/24/18 07:05 Chief Complaint (Nursing): GI Problem History Per: Other ([facility]) History/Exam Limitations: no limitations Current Symptoms Are (Timing): Still Present Quality Of Discomfort: denies: "Pain" Past Medical History Reviewed: Historical Data, Nursing Documentation, Vital Signs Vital Signs: Last Vital Signs Temp 98.9 F 06/24/18 09:31 Pulse 69 06/24/18 09:31 Resp 20 06/24/18 09:31 BP 129/83 06/24/18 09:31 Pulse Ox 97 06/24/18 09:31 - Medical History PMH: Dementia, HTN, Hypercholesterolemia, Hypothyroidism, Parkinson's Disease, Pneumonia Denies: Chronic Kidney Disease Surgical History: - [facility] Procedures CHANGE FEEDING DEVICE IN UP INTEST TRACT, LEAD SOFTWARE DEVELOPMENT ENGINEER APPROACH (02/04/17) INSERTION OF FEEDING DEVICE INTO STOMACH, PERC APPROACH (06/27/15) INSPECTION OF UPPER INTESTINAL TRACT, ENDO (06/27/15) INTRODUCTION OF NUTRITIONAL INTO PERIPH VEIN, PERC APPROACH (06/27/15) INTRODUCTION OF NUTRITIONAL INTO UP GI, VIA OPENING (12/03/15) Family History: States: Unknown Family Hx - Social History Hx Alcohol Use: No (non verbal) Hx Substance Use: No - Immunization History Hx Tetanus Toxoid Vaccination: No Hx Influenza Vaccination: No Hx Pneumococcal Vaccination: No Review Of Systems Review Of Systems: ROS cannot be obtained secondary to pt's inabilty to answer questions. Physical Exam - Physical Exam Appears: Chronically Ill Skin: Normal Color, Warm, Dry Head: Atraumatic, Normacephalic Neck: Normal ROM, Supple Chest: Symmetrical, No Deformity Cardiovascular: Rhythm Regular, No Murmur Respiratory: No Accessory Muscle Use, No Rales, No Rhonchi, No Wheezing Gastrointestinal/Abdominal: No Tenderness, Other (left periumbilical area has a PEG stoma with mild surrounding erythema and dark brown discharge, Cox catheter in place) Extremity: Capillary Refill (<2 seconds) Neurological/Psych: Other (awake, alert, non-verbal) ED Course And Treatment O2 Sat by Pulse Oximetry: 97 (in RA) - Other Rad Abdominal X-ray X-Ray: Interpreted by Me, Viewed By Me Interpretation: IMPRESSION: No acute findings related to/ accounting for the clinical presentation. . Concordant results with the preliminary interpretation rendered by the emergency department physician\\[email or web address] at the conclusion of the procedure. Progress Note: Cox catheter removed. New PEG tube put in place. X-ray of abdomen with contrast confirmed placement. Patient discharged to custodial. Disposition Counseled Patient/Family Regarding: Diagnosis, Need For Followup - Disposition Referrals: Yoshi Rascon MD [Staff Provider] - Disposition: Trans to Other Acute Care Hosp Disposition Time: 09:45 Condition: STABLE Forms: General Discharge Instructions, [facility] (Bulgarian) Print Language: MALAY - Clinical Impression Clinical Impression: PEG (percutaneous endoscopic gastrostomy) adjustment/replacement/removal - Scribe Statement The provider has reviewed the documentation as recorded by the Scribe (Ashlee Esteves) All medical record entries made by the Scribe were at my direction and personally dictated by me. I have reviewed the chart and agree that the record accurately reflects my personal performance of the history, physical exam, medical decision making, and the department course for this patient. I have also personally directed, reviewed, and agree with the discharge instructions and disposition.
--- NOTE | 2018-06-24 09:49 | C.PDOC ---
Time Seen by Provider: 06/24/18 07:05 Chief Complaint (Nursing): GI Problem Past Medical History Vital Signs: Last Vital Signs Temp 98.9 F 06/24/18 09:31 Pulse 69 06/24/18 09:31 Resp 20 06/24/18 09:31 BP 129/83 06/24/18 09:31 Pulse Ox 97 06/24/18 09:31 - Medical History PMH: Dementia, HTN, Hypercholesterolemia, Hypothyroidism, Parkinson's Disease, Pneumonia Denies: Chronic Kidney Disease Surgical History: - [facility] Procedures CHANGE FEEDING DEVICE IN UP INTEST TRACT, COMPOSITE BOAT BUILDER APPROACH (02/04/17) INSERTION OF FEEDING DEVICE INTO STOMACH, PERC APPROACH (06/27/15) INSPECTION OF UPPER INTESTINAL TRACT, ENDO (06/27/15) INTRODUCTION OF NUTRITIONAL INTO PERIPH VEIN, PERC APPROACH (06/27/15) INTRODUCTION OF NUTRITIONAL INTO UP GI, VIA OPENING (12/03/15) - Social History Hx Alcohol Use: No (non verbal) Hx Substance Use: No - Immunization History Hx Tetanus Toxoid Vaccination: No Hx Influenza Vaccination: No Hx Pneumococcal Vaccination: No ED Course And Treatment O2 Sat by Pulse Oximetry: 97 Disposition Counseled Patient/Family Regarding: Diagnosis, Need For Followup - Disposition Referrals: Yoshi Rascon MD [Staff Provider] - Disposition: Trans to Other Acute Care Hosp Disposition Time: 09:45 Condition: STABLE Forms: [facility] (Ivorian), General Discharge Instructions Print Language: BENGALI - Clinical Impression Clinical Impression: PEG (percutaneous endoscopic gastrostomy) adjustment/replacement/removal
[2018-06-24 10:49] VITALS: PULSE 80; RESP 18; TEMP 98
--- NOTE | 2018-06-24 12:58 | RAD ---
Date of service: 06/24/2018 HISTORY: with contrast via PEG for G tube confirmation COMPARISON: 06/13/2018 TECHNIQUE: 1 view obtained. FINDINGS: BOWEL: Normal. No obstruction. No free air. Contrast identified in small bowel BONES: Normal. OTHER FINDINGS: None. IMPRESSION: No acute findings related to/ accounting for the clinical presentation. Concordant results with the preliminary interpretation rendered by the emergency department physician procedure.
== END 2018-06-24 11:00 | disposition short-term general hospital (02) ==
LOC: C.ER 06:32
DX: Z43.1 Encounter for attention to gastrostomy (principal)
CPT/HCPCS: 74018; 99285; Q9966

== ENCOUNTER 2018-07-09 00:07 | Emergency (ER) | payer MEDICARE, MEDICAID | END 2018-07-09 09:43 | disposition home or self-care (01) | LOC: C.ER 00:07 ==